=== PATIENT | male | born 1950 | race African-American/Black ===

== ENCOUNTER 2017-07-16 21:12 | Emergency (ER) | payer MEDICAID ==
[~2017-07-16] VITALS: Ht 188 cm; Wt 66.7 kg
[~2017-07-16 21:12] MED LIST: ALBUTEROL SULF8.5 GM INH; BACTRIM DOUBLE S1 E1 ORAL; DOXYCYCLINE MO100 MG ORAL; NORCO1 EA ORAL; UNOBMED; VIBRAMYCIN100 MG ORAL; unknown bp med
[2017-07-16 21:29] VITALS: BP 180/98
[2017-07-16] MEDS ORDERED: methylPREDNISolone Sod Succ 500 MG in NS 110 ML IVPB ONE (21:30)
[2017-07-16] MEDS ORDERED: Albuterol ud Inhalation HHN ONE (21:30)
[2017-07-16] MEDS ORDERED: Ipratropium 0.02% Inh Soln 2.5ml UD HHN ONE (21:30)
[2017-07-16] MEDS ORDERED: CATAPRES-TTS 21 EACH TDERMAL (21:34)
[2017-07-16] MEDS ORDERED: LEVOFLOXACIN750 MG ORAL (21:34)
--- NOTE | 2017-07-16 21:49 | Emergency Room Report ---
History of Present Illness General Chief Complaint: Dyspnea/Respdistress Source: Patient, Friend Present Illness HPI This is a 66-year-old male with a history of hypertension and HIV. According to friend, he smokes a lot and cannot take his blood pressure medication. Patient claimed that he takes his HIV medication. He presents with chief complaint of cough and congestion for over a week. No fever or chills. Getting worse. Worse with exertion. Cough is productive of whitish to yellow sputum. No nausea no vomiting. Similar symptom in the past. Denies any chest pain. Allergies: Coded Allergies: No Known Allergies (Verified Allergy, Unknown, 04/12/08) Patient History Past Medical History: see triage record, old chart reviewed, HTN, HIV Past Surgical History: other Pertinent Family History: none Social History: Reports: smoking, drug use Immunizations: other Reviewed Nursing Documentation: PMH: Agreed, PSxH: Agreed Nursing Documentation-PMH Hx Hypertension: Yes Hx COPD: Yes Review of Systems Eye: Denies: eye pain, blurred vision ENT: Denies: ear pain, nose congestion, throat swelling Respiratory: Reports: cough, shortness of breath Cardiovascular: Denies: chest pain, palpitations Gastrointestinal: Denies: abdominal pain, diarrhea, nausea, vomiting Musculoskeletal: Denies: back pain, joint pain Skin: Denies: rash Neurological: Denies: headache, numbness Endocrine: Denies: increased thirst, increased urine Hematologic/Lymphatic: Denies: easy bruising All Other Systems: negative except mentioned in HPI Physical Exam Vital Signs Date Time Temp Pulse Resp B/P (MAP) Pulse Ox O2 Delivery O2 Flow Rate FiO2 07/16/17 21:24 98.8 92 18 197/118 85 Room Air 07/16/17 21:29 2.0 vitals with high blood pressure and hypoxia Sp02 EP Interpretation: reviewed, normal General Appearance: well appearing, alert, mild distress, Chronically Ill Head: normocephalic, atraumatic Eyes: bilateral eye PERRL, bilateral eye EOMI ENT: hearing grossly normal, normal pharynx Neck: full range of motion, supple, no meningismus Respiratory: chest non-tender, crackles, rhonchi Cardiovascular #1: regular rate, rhythm, no murmur Gastrointestinal: normal bowel sounds, non tender, no mass, no organomegaly, no bruit, non-distended Musculoskeletal: back normal, gait/station normal, normal range of motion, other - Multiple track webster on both arms from skin popping. Neurologic: alert, oriented x3 Psychiatric: mood/affect normal Skin: warm/dry Medical Decision Making Diagnostic Impression: Primary Impression: COPD with exacerbation Additional Impressions: Pneumonia Qualified Codes: J18.1 - Lobar pneumonia, unspecified organism Hypertension Qualified Codes: I10 - Essential (primary) hypertension Drug abuse ER Course Patient presents with coughing, rhonchi wheezing. He does have a history of COPD based on previous x-ray. Questionable [facility] pneumonia. Because of his risk factor undergoing cover him with antibiotics. He felt much better after breathing treatment. Does not want to stay in the hospital. I suspect his hypoxia is chronic in nature, smoking. No evidence of ACS, PE, dissection to name a few. Lab Results Impression labs unremarkable EKG Diagnostic Results Rate: normal Rhythm: NSR ST Segments: no acute changes Rhythm Strip Diag. Results Rhythm Strip Time: 21:49 EP Interpretation: yes Rate: 82 Rhythm: NSR, no PVC's, no ectopy Chest X-Ray Diagnostic Results Chest X-Ray Diagnostic Results : Chest X-Ray Ordered: Yes # of Views/Limited/Complete: 1 View Indication: Shortness of Breath EP Interpretation: Yes Interpretation: no effusion, no pneumothorax, other - Right lower lobe interstitial infiltrates Last Vital Signs Date Time Temp Pulse Resp B/P (MAP) Pulse Ox O2 Delivery O2 Flow Rate FiO2 07/16/17 21:29 98.7 87 16 180/98 100 Nasal Cannula 2.0 Status: improved Disposition: HOME, SELF-CARE Condition: Improved Scripts Amlodipine Besylate (Norvasc) 10 Mg Tablet 10 MG ORAL DAILY, #30 TAB Prov: KISHORE RAM M.D. 07/16/17 Azithromycin* (ZITHROMAX*) 250 Mg Tablet 250 MG ORAL DAILY, #6 TAB 0 Refills Take two tablets by mouth today, then take one tablet by mouth daily for four days Prov: KISHORE RAM M.D. 07/16/17 Prednisone* (PREDNISONE*) 20 Mg Tablet 60 MG ORAL DAILY, #15 TAB Prov: KISHORE RAM M.D. 07/16/17 Albuterol Sulfate* (ALBUTEROL SULFATE MDI*) 8.5 Gm Hfa.aer.ad 2 PUFF INH Q4H Y for cough/wheezing, #1 EA 0 Refills Prov: KISHORE RAM M.D. 07/16/17 Patient Instructions: Chronic Obstructive Pulmonary Disease Exacerbation Additional Instructions: Stop smoking. Stop using drugs. Followup with your Dr. in 2-3 days. Return if worse. KISHORE RAM M.D. Jul 16, 2017 21:49
[2017-07-16 22:31] LABS: BASOPHILS % (AUTO) 3.1 % (0.0-2.0); EOSINOPHILS % (AUTO) 4.6 % (0.0-3.0); LYMPHOCYTES % (AUTO) 25.5 % (20.0-45.0); MEAN CORPUSCULAR HEMOGLOBIN 31.5 PG (27.0-31.0); MEAN CORPUSCULAR HGB CONC 33.3 G/DL (32.0-36.0); MEAN CORPUSCULAR VOLUME 95 FL (80-99); MEAN PLATELET VOLUME 8.4 FL (6.5-10.1); MONOCYTES % (AUTO) 9.4 % (1.0-10.0); NEUTROPHILS % (AUTO) 57.4 % (45.0-75.0); PLATELET COUNT 145 K/UL (150-450); RED BLOOD COUNT 4.43 M/UL (4.70-6.10); RED CELL DISTRIBUTION WIDTH 12.3 % (11.6-14.8); WHITE BLOOD COUNT 4.1 K/UL (4.8-10.8)
[2017-07-16 22:33] VITALS: BP 178/95
[2017-07-16 22:45] LABS: TROPONIN I < 0.30 ng/mL (<=0.30)
[2017-07-16 22:48] LABS: ALANINE AMINOTRANSFERASE 17 U/L (3-41); ALBUMIN/GLOBULIN RATIO 0.8 (1.0-2.7); ANION GAP 10 (5-15); ASPARTATE AMINO TRANSFERASE 50 U/L (5-40); CALCIUM 8.8 mg/dL (8.6-10.2); CARBON DIOXIDE 27 mEQ/L (20-30); CHLORIDE 100 mEQ/L (98-107); CREATININE 0.9 mg/dL (0.7-1.2); GLOMERULAR FILTRATION RATE > 60 mL/min (>60); HEMOLYSIS 37; POTASSIUM 4.4 mEQ/L (3.4-4.9); SODIUM 137 mEQ/L (135-145); TOTAL PROTEIN 8.1 g/dL (6.6-8.7)
[2017-07-16 22:57] LABS: CKMB 15.5 ng/mL (< 6.7)
[2017-07-16] MEDS ORDERED: cefTRIAXone 1 GM in NS 55 ML IVPB ONE (23:00)
[2017-07-16 23:36] VITALS: BP 165/88
[2017-07-16] MEDS ORDERED: ALBUTEROL SULF8.5 GM INH (23:39)
[2017-07-16] MEDS ORDERED: AZITHROMYCIN250 MG ORAL (23:39)
[2017-07-16] MEDS ORDERED: NORVASC10 MG ORAL (23:39)
[2017-07-16] MEDS ORDERED: PREDNISONE20 MG ORAL (23:39)
[2017-07-16 23:50] VITALS: BP 168/88
[2017-07-16 23:56] VITALS: BP 166/88
[2017-07-16 23:56] LABS: APPEARANCE,URINE CLEAR; KETONES,URINE NEGATIVE (NEGATIVE); LEUKOCYTE ESTERASE ,URINE 2+ (NEGATIVE); NITRITE,URINE NEGATIVE (NEGATIVE); PH,URINE 5 (4.5-8.0); PROTEIN,URINE NEGATIVE (NEGATIVE); UROBILINOGEN,URINE NORMAL MG/DL (0.0-1.0)
[2017-07-17 00:12] LABS: BACTERIA,URINE FEW /HPF; RBC,URINE 0-2 /HPF (0 - 0); SQUAMOUS EPITHELIAL CELL,UR FEW /LPF (NONE/OCC)
--- NOTE | 2017-07-17 09:08 | Diagnostic Imaging Report ---
Indication: Shortness of breath Technique: XRAY CHEST 1 V Comparison: 07/23/14 Findings: Cardiomediastinal silhouette is stable. The lungs are hyperinflated. Mild perihilar and basilar interstitial prominence is noted. Degenerative changes of the spine are seen. Impression: Mild perihilar and basilar interstitial edema versus infiltrates. Pulmonary hyperinflation. Clinical correlation/followup recommended.
--- NOTE | 2017-07-22 15:49 | Cardiology Report ---
APPROVED REPORT EKG Measurement Heart [id number] Normal sinus rhythm Possible Left atrial enlargement Borderline ECG
== END 2017-07-16 23:50 | disposition home or self-care (01) ==
LOC: EMR 21:58
DX: J44.1 Chronic obstructive pulmonary disease with (acute) exacerbation (principal); J18.9 Pneumonia, unspecified organism; I10 Essential (primary) hypertension; F19.10 Other psychoactive substance abuse, uncomplicated
CPT/HCPCS: 36415; 71010; 80053; 81003; 82550; 82553; 83605; 83615; 84484; 85025; 87040; 87086; 93005; 94664; 96361; 96365; 96366; 99284; J0696

== ENCOUNTER 2018-02-18 18:32 | Inpatient (IN) | payer MEDICARE, OTHER ==
[~2018-02-18] VITALS: Ht 182.9 cm; Wt 72.6 kg
[~2018-02-18 18:32] MED LIST changes: +AZITHROMYCIN250 MG ORAL; +CATAPRES-TTS 21 EACH TDERMAL; +LEVOFLOXACIN750 MG ORAL; +NORVASC10 MG ORAL; +PREDNISONE20 MG ORAL
[2018-02-18 18:39] VITALS: BP 137/75
[2018-02-18] MEDS: Ipratropium 0.02% Inh Soln 2.5ml UD HHN SCH ×3 (19:10→19:20)
[2018-02-18] MEDS: Albuterol ud Inhalation HHN SCH ×3 (19:10→19:20)
[2018-02-18 19:25] LABS: BASOPHILS % (AUTO) 6.4 % (0.0-2.0); HEMATOCRIT 43.8 % (42.0-52.0); HEMOGLOBIN 14.4 G/DL (14.2-18.0); LYMPHOCYTES % (AUTO) 21.6 % (20.0-45.0); MEAN CORPUSCULAR VOLUME 96 FL (80-99); MONOCYTES % (AUTO) 8.3 % (1.0-10.0); NEUTROPHILS % (AUTO) 60.7 % (45.0-75.0); PLATELET COUNT 182 K/UL (150-450); RED BLOOD COUNT 4.56 M/UL (4.70-6.10); RED CELL DISTRIBUTION WIDTH 13.8 % (11.6-14.8); WHITE BLOOD COUNT 6.2 K/UL (4.8-10.8)
[2018-02-18 19:38] LABS: ANION GAP 7 mmol/L (5-15); BLOOD UREA NITROGEN 13 mg/dL (7-18); CALCIUM 8.7 MG/DL (8.5-10.1); CARBON DIOXIDE 28 MMOL/L (21-32); CHLORIDE 102 MMOL/L (98-107); CREATININE 1.3 MG/DL (0.55-1.30); POTASSIUM 4.6 MMOL/L (3.5-5.1); SODIUM 137 MMOL/L (136-145)
[2018-02-18 19:53] LABS: ALANINE AMINOTRANSFERASE 98 U/L (12-78); ALBUMIN 2.9 G/DL (3.4-5.0); ALBUMIN/GLOBULIN RATIO 0.6 (1.0-2.7); ALKALINE PHOSPHATASE 125 U/L (46-116); ASPARTATE AMINO TRANSFERASE 175 U/L (15-37); BILIRUBIN,TOTAL 1.5 MG/DL (0.2-1.0)
[2018-02-18 19:56] LABS: BILIRUBIN,DIRECT 1.1 MG/DL (0.0-0.3)
[2018-02-18 20:06] LABS: APPEARANCE,URINE SLIGHTLY CLOUDY; BILIRUBIN, URINE 1+ (NEGATIVE); GLUCOSE, URINE (UA) NEGATIVE (NEGATIVE); KETONES,URINE 1+ (NEGATIVE); LEUKOCYTE ESTERASE ,URINE 2+ (NEGATIVE); NITRITE,URINE NEGATIVE (NEGATIVE); PH,URINE 5 (4.5-8.0); PROTEIN,URINE 2+ (NEGATIVE); UROBILINOGEN,URINE 4 MG/DL (0.0-1.0)
[2018-02-18 20:13] LABS: COLOR,URINE AMBER
--- NOTE | 2018-02-18 20:15 | Emergency Room Report ---
History of Present Illness General Chief Complaint: Dyspnea/Respdistress Source: EMS Present Illness HPI 67-year-old male presents ED for evaluation. Patient complaining of shortness of breath. Brought in by EMS from street. History of COPD. States he's had the symptoms on and off for the last 2 months but worse today. Denies chest pain. Denies fevers or chills. Per EMS patient was wheezing and given breathing treatment. History of HIV. No other aggravating relieving factors. Denies any other associated symptoms Allergies: Coded Allergies: No Known Allergies (Verified , 04/12/08) Patient History Past Medical History: HTN, asthma, COPD Past Surgical History: none Pertinent Family History: none Social History: Denies: smoking, alcohol use, drug use Immunizations: UTD Reviewed Nursing Documentation: PMH: Agreed; PSxH: Agreed Nursing Documentation-PMH Hx Hypertension: Yes Hx Asthma: Yes Hx COPD: Yes Review of Systems All Other Systems: negative except mentioned in HPI Physical Exam Vital Signs Date Time Temp Pulse Resp B/P (MAP) Pulse Ox O2 Delivery O2 Flow Rate FiO2 02/18/18 18:28 98.0 125 22 137/75 85 Room Air 98.1 02/18/18 18:39 2.0 100 Sp02 EP Interpretation: reviewed, normal General Appearance: no apparent distress, alert, GCS 15, non-toxic Head: normocephalic, atraumatic Eyes: bilateral eye normal inspection, bilateral eye PERRL ENT: hearing grossly normal, normal pharynx, no angioedema, normal voice Neck: full range of motion, supple/symm/no masses Respiratory: chest non-tender, decreased breath sounds, speaking full sentences , wheezing Cardiovascular #1: regular rate, rhythm, no edema Cardiovascular #2: 2+ carotid (R), 2+ carotid (L), 2+ radial (R), 2+ radial (L) , 2+ dorsalis pedis (R), 2+ dorsalis pedis (L) Gastrointestinal: normal bowel sounds, non tender, soft, non-distended, no guarding, no rebound Rectal: deferred Genitourinary: normal inspection, no CVA tenderness Musculoskeletal: back normal, gait/station normal, normal range of motion, non- tender Neurologic: alert, oriented x3, responsive, motor strength/tone normal, sensory intact, speech normal Psychiatric: judgement/insight normal, memory normal, mood/affect normal, no suicidal/homicidal ideation Reflexes: 3+ bicep (R), 3+ bicep (L), 3+ tricep (R), 3+ tricep (L), 3+ knee (R) , 3+ knee (L) Skin: normal color, no rash, warm/dry, well hydrated Lymphatic: no adenopathy Medical Decision Making Diagnostic Impression: Primary Impression: COPD exacerbation ER Course Hospital Course 67 yo M presents to ED c/o SOB. h/o COPD Differential diagnoses include: Pneumonia, CHF exacerbation, pneumothorax, fluid overload Clinical course Patient placed on stretcher. 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 After initial history and physical, I ordered nebulizer treatments. I ordered labs, IV fluids, EKG, chest x-ray, blood cultures, UA. Labs - no leukocytosis noted, hemoglobin/hematocrit stable, electrolytes okay, lactate 3.2 troponins negative CXR - hyperinflated lungs. no infiltrates EKG - sinus tachycardia, no acute ischemic changes interpreted by me On reassessment patient states he still feels short of breath. Abx given. Magnesium ordered Case discussed with Dr. Crabtree and he agreed to the patient to his service for further care and support I feel this is a highly complex case requiring extensive working including EKG/ Rhythm strip, Xray/CT/US, Blood/urine lab work, repeat exams while in ED, and administration of strong opiates/narcotics for pain control, admission to hospital or close patient follow up. Diagnosis - COPD exacerbation Patient admitted to telemetry in serious condition Labs Test 02/18/18 18:45 02/18/18 19:27 White Blood Count 6.2 K/UL (4.8-10.8) Red Blood Count 4.56 M/UL (4.70-6.10) Hemoglobin 14.4 G/DL (14.2-18.0) Hematocrit 43.8 % (42.0-52.0) Mean Corpuscular Volume 96 FL (80-99) Mean Corpuscular Hemoglobin 31.6 PG (27.0-31.0) Mean Corpuscular Hemoglobin Concent 32.9 G/DL (32.0-36.0) Red Cell Distribution Width 13.8 % (11.6-14.8) Platelet Count 182 K/UL (150-450) Mean Platelet Volume 7.9 FL (6.5-10.1) Neutrophils (%) (Auto) 60.7 % (45.0-75.0) Lymphocytes (%) (Auto) 21.6 % (20.0-45.0) Monocytes (%) (Auto) 8.3 % (1.0-10.0) Eosinophils (%) (Auto) 3.0 % (0.0-3.0) Basophils (%) (Auto) 6.4 % (0.0-2.0) Sodium Level 137 MMOL/L (136-145) Potassium Level 4.6 MMOL/L (3.5-5.1) Chloride Level 102 MMOL/L (98-107) Carbon Dioxide Level 28 MMOL/L (21-32) Anion Gap 7 mmol/L (5-15) Blood Urea Nitrogen 13 mg/dL (7-18) Creatinine 1.3 MG/DL (0.55-1.30) Estimat Glomerular Filtration Rate > 60 mL/min (>60) Glucose Level 82 MG/DL (74-106) Lactic Acid Level 3.20 mmol/L (0.66-2.22) Calcium Level 8.7 MG/DL (8.5-10.1) Total Bilirubin 1.5 MG/DL (0.2-1.0) Direct Bilirubin 1.1 MG/DL (0.0-0.3) Aspartate Amino Transf (AST/SGOT) 175 U/L (15-37) Alanine Aminotransferase (ALT/SGPT) 98 U/L (12-78) Alkaline Phosphatase 125 U/L (46-116) Pro-B-Type Natriuretic Peptide 467 pg/mL (0-125) Total Protein 7.8 G/DL (6.4-8.2) Albumin 2.9 G/DL (3.4-5.0) Globulin 4.9 g/dL Albumin/Globulin Ratio 0.6 (1.0-2.7) Urine Color Charity Urine Appearance Slightly cloudy Urine pH 5 (4.5-8.0) Urine Specific [place] 1.020 (1.005-1.035) Urine Protein 2+ (NEGATIVE) Urine Glucose (UA) Negative (NEGATIVE) Urine Ketones 1+ (NEGATIVE) Urine Occult Blood 2+ (NEGATIVE) Urine Nitrite Negative (NEGATIVE) Urine Bilirubin 1+ (NEGATIVE) Urine Urobilinogen 4 MG/DL (0.0-1.0) Urine Leukocyte Esterase 2+ (NEGATIVE) EKG Diagnostic Results Rate: tachycardiac Rhythm: NSR ST Segments: no acute changes ASA given to the pt in ED: No Rhythm Strip Diag. Results EP Interpretation: yes Rhythm: NSR, no PVC's, no ectopy Chest X-Ray Diagnostic Results Chest X-Ray Diagnostic Results : Chest X-Ray Ordered: Yes # of Views/Limited/Complete: 1 View Indication: Shortness of Breath Interpretation: no consolidation, no effusion, no pneumothorax, no acute cardiopulmonary disease, other - perihilar interstitial changes, hyperinflated lungs Impression: Other - copd Electronically Signed by: Electronically signed by Anderson Alvarez MD Last Vital Signs Date Time Temp Pulse Resp B/P (MAP) Pulse Ox O2 Delivery O2 Flow Rate FiO2 02/18/18 19:21 106 14 99 Nasal Cannula 2.0 28 02/18/18 18:39 98.1 137/75 98.1 Status: improved Disposition: ADMITTED INPATIENT Condition: Serious Referrals: OTHER,REFERRING (PCP) Anderson Alvarez MD Feb 18, 2018 20:15
[2018-02-18 20:39] VITALS: BP 144/99
[2018-02-18] MEDS ORDERED: Morphine Sulfate 4mg/ml Inj IVP PRN ×2 (22:30→22:45)
[2018-02-18 22:39] VITALS: BP 150/81
[2018-02-18 23:35] VITALS: BP 155/87
[2018-02-19] MEDS: Docusate 100mg cap ORAL SCH ×3 (00:10→22:23)
[2018-02-19] MEDS: Solu-MEDROL 125mg Inj IVP SCH ×3 (00:11→22:23)
[2018-02-19] MEDS: Albuterol/Ipratropium 3ml neb HHN SCH ×4 (01:00→19:57)
[2018-02-19 04:00] VITALS: BP 139/84
[2018-02-19 08:00] VITALS: BP 140/80
[2018-02-19] MEDS: Azithromycin 250mg tab ORAL SCH (08:06)
--- NOTE | 2018-02-19 10:58 | Diagnostic Imaging Report ---
Indication: Dyspnea Comparison: 07/16/2017 A single view chest radiograph was obtained. Findings: Upper lobe hyperlucency demonstrated within the lungs bilaterally. No obvious infiltrate identified and no significant change seen. Cardiac mediastinal silhouette and bones are unremarkable. IMPRESSION: Emphysema/COPD
--- NOTE | 2018-02-19 11:44 | History & Physical ---
History and Physical History & Physicial Hp dictated # [id number] RU VALERO Feb 19, 2018 11:44
[2018-02-19] MEDS ORDERED: Bactrim-DS 1 tab ORAL SCH ×2 (11:45→13:00)
[2018-02-19 12:00] VITALS: BP 139/92
--- NOTE | 2018-02-19 14:16 | Consultation ---
Consult Note Assessment/Plan [facility] DICT # [id number] SAYRA BAILEY M.D. Feb 19, 2018 14:16
[2018-02-19 16:00] VITALS: BP 134/87
--- NOTE | 2018-02-19 17:05 | Cardiology Report ---
APPROVED REPORT EKG Measurement Heart [id number] ID [id number] Sinus tachycardia Nonspecific T wave abnormality Abnormal ECG
[2018-02-19] MEDS: Bactrim-DS 1 tab ORAL SCH (17:16)
--- NOTE | 2018-02-19 19:15 | History and Physical Report ---
DATE OF ADMISSION: 02/18/2018 CHIEF COMPLAINT: Shortness of breath. HISTORY OF PRESENT ILLNESS: This is a 67-year-old male with history of chronic obstructive pulmonary disease. He said that he was just last month at [facility] for shortness of breath and chronic obstructive pulmonary disease exacerbation. He got short of breath again last night and called paramedics. He said that he used his inhalers 4 or 5 times without any effect. The patient was seen in the emergency room and was found to have chronic obstructive pulmonary disease exacerbation and was admitted. PAST MEDICAL HISTORY: Includes also history of human immunodeficiency virus. 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 He has history of hypertension. MEDICATIONS: Reviewed in the EMR. ALLERGIES: No known drug allergies. SOCIAL HISTORY: The patient used to smoke until last month, he stopped. He said that he used to smoke 2 packs a day for about 5 years. He drinks socially. Lives with girlfriend. REVIEW OF SYSTEMS: Noncontributory except above. PHYSICAL EXAMINATION: GENERAL: The patient is a 67-year-old male, in no acute distress. VITAL SIGNS: Blood pressure 140/80, pulse 91, temperature 97.1, and respiratory rate 20. HEENT: [place] conjunctivae. Anicteric sclerae. NECK: Supple. LUNGS: Bilateral expiratory wheezing. HEART: S1 and S2 without murmurs or rubs. ABDOMEN: Soft and nontender. EXTREMITIES: No cyanosis or edema. LABORATORY FINDINGS: The chemistry panel shows serum sodium of 137, potassium 4.6, chloride 103, CO2 28, BUN is 13, and creatinine 1.3. Calcium is 8.7. CBC shows a WBC of 6.2, hematocrit 43.8, hemoglobin is 14.4, and platelets 182,000. UA shows 10 to 15 wbc's per high-power field. ASSESSMENT: This is a 67-year-old male, who is admitted with chronic obstructive pulmonary disease exacerbation. He has significant wheezing on his physical exam. He has also urinary tract infection. He could also have some acute bronchitis, history of human immunodeficiency virus, and hypertension. PLAN: The patient will be on handheld nebulizer DuoNeb. Intravenous steroids were started. The patient will be on antibiotics both for possible acute bronchitis as well as his urinary tract infection. Pulmonary consultation will be obtained and further adjustment will be made in the patient's regimen. Solitario Crabtree M.D. DR: MIK JOB#: [id number] CC:
[2018-02-19 20:00] VITALS: BP 172/110
--- NOTE | 2018-02-19 21:00 | Consultation ---
DATE OF CONSULTATION: 02/19/2018 PULMONARY CONSULTATION CONSULTING PHYSICIAN: Agusto Hamilton M.D. REFERRING PHYSICIAN: Solitario Crabtree M.D. REASON FOR CONSULTATION: COPD exacerbation. HISTORY OF PRESENT ILLNESS: The patient is a 67-year-old male, former smoker with a history of COPD, hypertension, HIV and possible AIDS, recently discharged from [facility] 1 month ago with a COPD exacerbation who presented late last night early this morning to the emergency department with several days of cough, congestion and shortness of breath. He has been having some wheezing and breathing treatments on the field did not help. He only uses p.r.n. albuterol at home. He does not follow up with the manager dish. The patient receiving nebulized treatments and steroids in the emergency room. Feels better currently. Since arriving at the hospital, he has been afebrile with stable vital signs except for some mild sinus tachycardia. He has been saturating well on room air. His white count was 6.2. His ABG was 7.37/48/124/27/98. His chemistry was remarkable for elevated lactic acid and abnormal LFTs. The patient is unsure of his CD4 count or viral load. He states that he was previously on therapy for his HIV. It is unclear why he is not right now. PAST MEDICAL HISTORY: 1. COPD. 2. HIV. 3. Hypertension. PAST SURGICAL HISTORY: None. MEDICATIONS: Prior to admission medications reviewed. Current medications reviewed. ALLERGIES: No known drug allergies. SOCIAL HISTORY: No current tobacco, but extensive former tobacco. No drug or alcohol use. FAMILY HISTORY: Noncontributory. REVIEW OF SYSTEMS: Negative other than history of present illness. PHYSICAL EXAMINATION: GENERAL: Well-developed and well-nourished male in no acute distress. Awake, alert, and oriented. VITAL SIGNS: Temperature 97.7 degrees, pulse 78, blood pressure 139/92, respiratory rate 20 and saturating 99% on room air. HEENT: Normocephalic and atraumatic. Oropharynx is moist mucous membranes. NECK: Supple without lymphadenopathy or JVD. CHEST: Clear to auscultation bilaterally, but distant. HEART: Regular rate and rhythm. ABDOMEN: Soft, nontender, and nondistended. EXTREMITIES: No cyanosis, clubbing, or edema. LABORATORY AND DIAGNOSTIC DATA: Ancillary data, sodium 137, potassium 4.2, chloride 102, bicarbonate 28, BUN 13, and creatinine 1.3. Lactic acid 3.2. Calcium 8.7. Total bilirubin 1.5. Direct bilirubin 1.1. AST 175, ALT 98, and alkaline phosphatase 125. Troponin 0.026. ProBNP 467. Total protein 7.8. Albumin 2.9. Urinalysis, 2+ protein. 1+ ketones, 2+ blood, 1+ bilirubin, 2+ urobilinogen, and moderate bacteria. Urine culture is preliminarily no growth. Chest x-ray shows hyperinflation consistent with COPD with likely upper lobe predominant bullous disease. ASSESSMENT: The patient is a 67-year-old male former smoker with history of COPD, HIV, possible AIDS, hypertension, multiple recent COPD exacerbations presenting with shortness of breath. Also noted to have abnormal LFTs and shortness of breath is likely secondary to an exacerbation of his chronic obstructive pulmonary disease. The patient also has urinary tract infection. PROBLEM LIST: 1. COPD with acute exacerbation. 2. History of multiple COPD exacerbations. 3. Former smoker. 4. HIV with possible AIDs, CD4 count and viral load unknown. 5. Abnormal LFTs. 6. UTI,. 7. Hypertension. TREATMENT PLAN: 1. Optimize pulmonary hygiene/mobilize as tolerated. 2. As needed O2 to keep saturations greater than 90%. 3. [id number] and p.r.n. DuoNebs. 4. Continues to Solu-Medrol 60 mg IV b.i.d., we will taper based on clinical response. 5. Continue p.o. azithromycin (today is day #1). 6. The patient is on Bactrim, presumptively for PCP prophylaxis and on Levaquin for UTI. 7. Continue to encourage abstinence from tobacco use. 8. Follow up abdominal ultrasound. 9. Monitor LFTs. 10. Aspiration precautions. 11. DVT prophylaxis. 12. Heparin subcutaneous. Dr. Crabtree, thank you for allowing me to assist in the care of your patient. If I may be of any assistance in the future, please do not hesitate to ask. Agusto Hamilton M.D. DR: LILA JOB#: [id number] CC:
[2018-02-19] MEDS: Ciprofloxacin 500mg tab ORAL SCH (22:23)
[2018-02-20] VITALS (7 sets, daily range): BP systolic 130–161; BP diastolic 75–102
[2018-02-20] MEDS: Albuterol/Ipratropium 3ml neb HHN SCH ×5 (01:27→19:35)
--- NOTE | 2018-02-20 08:38 | Pulmonology Progress Note ---
Assessment/Plan Problems: (1) HIV (human immunodeficiency virus infection) (2) Abnormal LFTs (3) COPD exacerbation (4) UTI (urinary tract infection) Assessment/Plan ASSESSMENT: The patient is a 67-year-old male former smoker with history of COPD, HIV, possible AIDS, hypertension, multiple recent COPD exacerbations presenting with shortness of breath. Also noted to have abnormal LFTs and shortness of breath is likely secondary to an exacerbation of his chronic obstructive pulmonary disease. The patient also has urinary tract infection. PROBLEM LIST: 1. COPD with acute exacerbation. 2. History of multiple COPD exacerbations. 3. Former smoker. 4. HIV with possible AIDs, CD4 count and viral load unknown. 5. Abnormal LFTs. 6. UTI,. 7. Hypertension. TREATMENT PLAN: 1. Optimize pulmonary hygiene/mobilize as tolerated. 2. As needed O2 to keep saturations greater than 90%. 3. Etoir-tfn-oqljo and p.r.n. DuoNebs. 4. Decrease Solu-Medrol to 40 mg IV b.i.d., we will taper based on clinical response. 5. Continue p.o. azithromycin (today is day #2 ). 6. The patient is on Bactrim, presumptively for PCP prophylaxis and on Cipro (D2) for UTI. 7. Continue to encourage abstinence from tobacco use. 8. Follow up abdominal ultrasound. 9. F/U todays labs, including CBC, CMP and lactic acid 10. Aspiration precautions. 11. DVT prophylaxis: Heparin subcutaneous. Subjective Allergies: Coded Allergies: No Known Allergies (Verified , 04/12/08) Subjective AFVSS, stable O2 needs Less SOB, less cough, no wheezing, no CP, no F/C No abd pain, awaiting abdominal US Objective Last 24 Hour Vital Signs Date Time Temp Pulse Resp B/P (MAP) Pulse Ox O2 Delivery O2 Flow Rate FiO2 02/20/18 07:25 95 Nasal Cannula 2.0 28 02/20/18 07:25 86 16 95 Nasal Cannula 2.0 28 02/20/18 07:25 Nasal Cannula 2.0 28 02/20/18 04:00 97.0 98 20 149/82 96 Room Air 97.0 02/20/18 04:00 91 02/20/18 01:35 95 18 98 Nasal Cannula 2.0 28 02/20/18 01:27 94 18 96 Nasal Cannula 2.0 28 02/20/18 00:00 98.0 97 20 153/90 96 Room Air 98.0 02/20/18 00:00 97 02/19/18 20:06 89 18 97 Nasal Cannula 2.0 28 02/19/18 20:00 89 02/19/18 20:00 97.5 103 20 172/110 95 Room Air 97.5 02/19/18 19:56 94 Nasal Cannula 2.0 28 02/19/18 19:56 92 18 94 Nasal Cannula 2.0 28 02/19/18 19:56 Nasal Cannula 2.0 28 02/19/18 16:00 97.5 88 20 134/87 100 Room Air 97.5 02/19/18 16:00 87 02/19/18 13:46 92 18 97 Nasal Cannula 2.0 02/19/18 13:31 87 22 94 Nasal Cannula 2.0 28 02/19/18 13:08 139/92 02/19/18 12:00 85 02/19/18 12:00 97.7 78 20 139/92 99 Room Air 97.7 Intake and Output 02/19/18 02/20/18 19:00 07:00 Intake Total 3960 ml Output Total 400 ml Balance 3560 ml Intake Oral 3960 ml Output Urine Total 400 ml # Voids 1 2 # Bowel Movements 1 General Appearance: WD/WN, no acute distress HEENT: normocephalic, atraumatic, anicteric, mucous membranes moist Respiratory/Chest: chest wall non-tender, lungs clear - but distant, normal breath sounds, no respiratory distress Cardiovascular: normal peripheral pulses, normal rate, regular rhythm Abdomen: normal bowel sounds, soft, non tender, no organomegaly, non distended Extremities: no cyanosis, no clubbing, no edema Microbiology Date/Time Source Procedure Growth Status 02/18/18 18:55 Blood Blood Culture - Preliminary NO GROWTH AFTER 24 HOURS Resulted 02/18/18 18:45 Blood Blood Culture - Preliminary NO GROWTH AFTER 24 HOURS Resulted 02/18/18 19:27 Urine,Clean Catch Urine Culture - Preliminary Mixed Gram Positive Organism Resulted Laboratory Tests 02/19/18 14:55: White Blood Count [Pending], Lymphocytes [Pending], Lactic Acid Level 5.00H, Lipase 150, Percent CD3 Cells [Pending], Absolute CD3 Count [Pending], Percent CD4 Cells [Pending], Absolute CD4 Count [Pending], T-Lymphocyte CD4/CD8 Ratio [ Pending], Percent CD8 Cells [Pending], Absolute CD8 Count [Pending], HIV-1 RNA ( PCR) log10 Value [Pending], HIV-1 RNA Ultraquantitative (PCR) [Pending] Current Medications Medications (Trade) Dose Ordered Sig/Marie Route PRN Reason Start Time Stop Time Status Last Admin Dose Admin Acetaminophen (Tylenol) 650 mg Q4H PRN ORAL Mild Pain (Pain Scale 1-3) 02/18/18 22:30 03/20/18 22:29 Albuterol/ Ipratropium (Albuterol/ Ipratropium) 3 ml Q4H PRN N Shortness of Breath 02/19/18 14:00 02/24/18 13:59 Albuterol/ Ipratropium (Albuterol/ Ipratropium) 3 ml Q6HRT HHN 02/19/18 01:00 02/24/18 00:59 02/20/18 07:25 Amlodipine Besylate (Norvasc) 10 mg DAILY ORAL 02/19/18 09:00 03/21/18 08:59 02/19/18 08:08 Azithromycin (Zithromax) 250 mg DAILY ORAL 02/19/18 09:00 02/26/18 08:59 02/19/18 08:06 Ciprofloxacin (Cipro 500mg tab) 500 mg EVERY 12 HOURS ORAL 02/19/18 21:00 02/26/18 20:59 02/19/18 22:23 Clonidine HCl (Catapres TTS-2) 1 patch QWEEK TDERMAL 02/19/18 12:00 03/21/18 11:59 02/19/18 13:08 Dextrose (Dextrose 50%) 25 ml STAT PRN IV Hypoglycemia 02/18/18 22:30 03/20/18 22:29 Dextrose (Dextrose 50%) 50 ml STAT PRN IV Hypoglycemia 02/18/18 22:30 03/20/18 22:29 Docusate Sodium (Colace) 100 mg EVERY 12 HOURS ORAL 02/18/18 22:30 03/20/18 22:29 02/19/18 22:23 Famotidine (Pepcid) 40 mg DAILY ORAL 02/19/18 09:00 03/21/18 08:59 02/19/18 08:07 Methylprednisolone Sodium Succinate (Solu-MEDROL) 60 mg EVERY 12 HOURS IVP 02/18/18 22:30 03/20/18 22:29 02/19/18 22:23 Morphine Sulfate (Morphine Sulfate) 2 mg Q3H PRN IVP Moderate Pain (Pain Scale 4-6) 02/18/18 22:45 02/25/18 22:44 Morphine Sulfate (Morphine Sulfate) 4 mg EVERY 3 HOURS PRN IVP Severe Pain (Pain Scale 7-10) 02/18/18 22:30 02/25/18 22:29 Temazepam (Restoril) 15 mg BEDTIME PRN ORAL INSOMNIA 02/18/18 22:30 02/25/18 22:29 Trimethoprim/ Sulfamethoxazole (Bactrim-DS) 1 tab TWICE A DAY ORAL 02/19/18 18:00 02/26/18 17:59 02/19/18 17:16 SAYRA BAILEY M.D. Feb 20, 2018 08:38
[2018-02-20] MEDS: Docusate 100mg cap ORAL SCH ×2 (09:00→21:08)
[2018-02-20] MEDS: Ciprofloxacin 500mg tab ORAL SCH (09:00)
[2018-02-20] MEDS: Bactrim-DS 1 tab ORAL SCH ×2 (09:00→18:00)
[2018-02-20] MEDS: Azithromycin 250mg tab ORAL SCH (09:00)
[2018-02-20] MEDS: Solu-MEDROL 40mg Inj IVP SCH ×2 (09:29→21:09)
--- NOTE | 2018-02-20 09:33 | General Progress Note ---
Assessment/Plan Problem List: (1) HIV (human immunodeficiency virus infection) ICD Codes: B20 - Human immunodeficiency virus [HIV] disease SNOMED: 30916194 (2) COPD exacerbation ICD Codes: J44.1 - Chronic obstructive pulmonary disease with (acute) exacerbation SNOMED: 604606923 (3) Abnormal LFTs ICD Codes: R94.5 - Abnormal results of liver function studies SNOMED: 569089808 (4) UTI (urinary tract infection) ICD Codes: N39.0 - Urinary tract infection, site not specified SNOMED: 49211224 Assessment/Plan cont with bronchodilators IV steroids abxs ID consult Subjective Allergies: Coded Allergies: No Known Allergies (Verified , 04/12/08) Subjective feels better Objective Last 24 Hour Vital Signs Date Time Temp Pulse Resp B/P (MAP) Pulse Ox O2 Delivery O2 Flow Rate FiO2 02/20/18 07:35 89 18 97 Nasal Cannula 2.0 28 02/20/18 07:25 95 Nasal Cannula 2.0 28 02/20/18 07:25 86 16 95 Nasal Cannula 2.0 28 02/20/18 07:25 Nasal Cannula 2.0 28 02/20/18 04:00 97.0 98 20 149/82 96 Room Air 97.0 02/20/18 04:00 91 02/20/18 01:35 95 18 98 Nasal Cannula 2.0 28 02/20/18 01:27 94 18 96 Nasal Cannula 2.0 28 02/20/18 00:00 98.0 97 20 153/90 96 Room Air 98.0 02/20/18 00:00 97 02/19/18 20:06 89 18 97 Nasal Cannula 2.0 28 02/19/18 20:00 89 02/19/18 20:00 97.5 103 20 172/110 95 Room Air 97.5 02/19/18 19:56 94 Nasal Cannula 2.0 28 02/19/18 19:56 92 18 94 Nasal Cannula 2.0 28 02/19/18 19:56 Nasal Cannula 2.0 28 02/19/18 16:00 97.5 88 20 134/87 100 Room Air 97.5 02/19/18 16:00 87 02/19/18 13:46 92 18 97 Nasal Cannula 2.0 28 02/19/18 13:31 87 22 94 Nasal Cannula 2.0 28 02/19/18 13:08 139/92 02/19/18 12:00 85 02/19/18 12:00 97.7 78 20 139/92 99 Room Air 97.7 Intake and Output 02/19/18 02/20/18 19:00 07:00 Intake Total 3960 ml Output Total 400 ml Balance 3560 ml Intake Oral 3960 ml Output Urine Total 400 ml # Voids 1 2 # Bowel Movements 1 Laboratory Tests 02/19/18 14:55: White Blood Count [Pending], Lymphocytes [Pending], Lactic Acid Level 5.00H, Lipase 150, Percent CD3 Cells [Pending], Absolute CD3 Count [Pending], Percent CD4 Cells [Pending], Absolute CD4 Count [Pending], T-Lymphocyte CD4/CD8 Ratio [ Pending], Percent CD8 Cells [Pending], Absolute CD8 Count [Pending], HIV-1 RNA ( PCR) log10 Value [Pending], HIV-1 RNA Ultraquantitative (PCR) [Pending] Height (Feet): 6 Height (Inches): 0.00 Weight (Pounds): 160 Cardiovascular: normal rate Respiratory/Chest: expiratory wheezing - less Edema: no edema noted RU Pete Feb 20, 2018 09:33
[2018-02-20 10:03] LABS: ANION GAP 4 mmol/L (5-15); BLOOD UREA NITROGEN 25 mg/dL (7-18); CALCIUM 8.5 MG/DL (8.5-10.1); CARBON DIOXIDE 29 MMOL/L (21-32); CHLORIDE 103 MMOL/L (98-107); CREATININE 1.1 MG/DL (0.55-1.30); POTASSIUM 4.9 MMOL/L (3.5-5.1); SODIUM 135 MMOL/L (136-145)
[2018-02-20 10:07] LABS: ALANINE AMINOTRANSFERASE 82 U/L (12-78); ALBUMIN 2.2 G/DL (3.4-5.0); ALBUMIN/GLOBULIN RATIO 0.5 (1.0-2.7); ALKALINE PHOSPHATASE 100 U/L (46-116); ASPARTATE AMINO TRANSFERASE 127 U/L (15-37)
[2018-02-20] MEDS: Albuterol/Ipratropium 3ml neb HHN PRN ×2 (11:27→17:19)
[2018-02-20 11:37] LABS: BASOPHILS % (AUTO) 4.9 % (0.0-2.0); HEMATOCRIT 44.6 % (42.0-52.0); HEMOGLOBIN 14.8 G/DL (14.2-18.0); LYMPHOCYTES % (AUTO) 8.7 % (20.0-45.0); MEAN CORPUSCULAR VOLUME 98 FL (80-99); MONOCYTES % (AUTO) 3.2 % (1.0-10.0); NEUTROPHILS % (AUTO) 83.2 % (45.0-75.0); PLATELET COUNT 159 K/UL (150-450); RED BLOOD COUNT 4.57 M/UL (4.70-6.10); RED CELL DISTRIBUTION WIDTH 13.3 % (11.6-14.8); WHITE BLOOD COUNT 8.7 K/UL (4.8-10.8)
[2018-02-20] MEDS ORDERED: Azithromycin 600mg Tab ORAL SCH (15:00)
--- NOTE | 2018-02-20 18:30 | Consultation ---
DATE OF CONSULTATION: 02/20/2018 INFECTIOUS DISEASE CONSULTATION CONSULTING PHYSICIAN: Steven Crabtree M.D. PRIMARY ATTENDING PHYSICIAN: Solitario Crabtree M.D. REASON FOR CONSULT: HIV, AIDS, and COPD with exacerbation. HISTORY OF PRESENT ILLNESS: The patient is a 67-year-old male, admitted on 02/18/2018 from home complaining of shortness of breath on and off for two months and also weight loss and productive cough. No fever. He has history of HIV. PAST MEDICAL HISTORY: Significant for HIV since 23 years ago, he was diagnosed when he was incarcerated. States that he goes to [facility] and takes medication every day. He has hypertension, believes that he has some kind of hepatitis, likely hepatitis C. He was also injection drug user and smoker. ALLERGIES: No known drug allergies. MEDICATIONS: Getting methylprednisolone, Cipro, Bactrim, albuterol, ipratropium, clonidine, famotidine, amlodipine, Zithromax, morphine, Tylenol, Colace, and temazepam. SOCIAL HISTORY: Single, but lives with somebody. He was a heavy smoker until 1 month ago. He smoked 2 packs of cigarettes a day. He used heroin and had skin-popping. REVIEW OF SYSTEMS: Denies fever or chills. He has weight loss of unknown amount. No nausea. No vomiting. No diarrhea. No problem passing urine. Shortness of breath and coughing. PHYSICAL EXAMINATION: VITAL SIGNS: Temperature 97.8 degrees, pulse 103, and blood pressure 144/78. GENERAL APPEARANCE: No acute distress. HEAD AND NECK: No oral lesion. Getting oxygen by nasal cannula. HEART: Tachycardic. LUNGS: Decreased expansion and sounds. ABDOMEN: Soft. The patient has abdominal wall hernia in the midline. EXTREMITIES: He has no edema, but there is scar of previous skin-popping. LABORATORY AND DIAGNOSTIC DATA: Sodium 135, potassium 4.9, chloride 103, bicarbonate 29, BUN 25, creatinine 1.1, and glucose 128. Lactic acid 4.1. AST 127 and ALT 82. WBC 8.7, hemoglobin 14.8, hematocrit 44.6, and platelet is 159,000. HIV viral load is pending. Absolute CD4 count is 4. Chest x-ray showed emphysema and COPD. IMPRESSION: HIV, AIDS. Absolute CD4 count is 4. The patient is at risk for opportunistic infection. Before admission, he was on Bactrim prophylaxis. He has COPD and emphysema. He has lactic acidosis, history of hepatitis C, and has elevated transaminases of liver. He has history of hypertension and has history of smoking and drug abuse. RECOMMENDATION: We will change Cipro to Levaquin. We will continue Bactrim. We will send sputum for Pneumocystis test. We will change the dose of Zithromax from 250 mg daily to 1200 mg weekly. The patient is supposed to send somebody to bring the medication from home. We will start HIV medication as soon as possible. At the end of my exam, I thank Dr. Crabtree for involving me in the care of this patient. Steven Crabtree M.D. DR: TERRANCE JOB#: [id number] CC: JACOB
[2018-02-21] VITALS: BP 137/84
[2018-02-21] MEDS: Albuterol/Ipratropium 3ml neb HHN SCH ×3 (00:37→12:30)
[2018-02-21 04:00] VITALS: BP 129/79
[2018-02-21 08:00] VITALS: BP 156/99
--- NOTE | 2018-02-21 08:36 | Pulmonology Progress Note ---
Assessment/Plan Problems: (1) HIV (human immunodeficiency virus infection) (2) Abnormal LFTs (3) COPD exacerbation (4) UTI (urinary tract infection) Assessment/Plan ASSESSMENT: The patient is a 67-year-old male former smoker with history of COPD, HIV, possible AIDS, hypertension, multiple recent COPD exacerbations presenting with shortness of breath. Also noted to have abnormal LFTs and shortness of breath is likely secondary to an exacerbation of his chronic obstructive pulmonary disease. The patient also has urinary tract infection. PROBLEM LIST: 1. COPD with acute exacerbation. 2. History of multiple COPD exacerbations. 3. Former smoker. 4. AIDS with CD4 count 4 5. Abnormal LFTs - IMPROVED 6. UTI,. 7. Hypertension. 8. Protein calorie malnutrition TREATMENT PLAN: 1. Optimize pulmonary hygiene/mobilize as tolerated. 2. As needed O2 to keep saturations greater than 90%. 3. Xsugt-cva-zneys and p.r.n. DuoNebs. 4. D/C SM, start Pred 4 BID and taper 5. Abx and PPX per ID 6. ? resume cART 7. Continue to encourage abstinence from tobacco use. 8. Follow up abdominal ultrasound. 9. F/U todays labs, including CBC, CMP and lactic acid 10. Aspiration precautions. 11. DVT prophylaxis: Heparin subcutaneous. Subjective Allergies: Coded Allergies: No Known Allergies (Verified , 04/12/08) Subjective AFVSS, stable O2 needs Denies SOB or cough, no wheezing, no CP, no F/C No abd pain, awaiting abdominal US (not done yesterday) LA 4, CD4 count 4! Objective Last 24 Hour Vital Signs Date Time Temp Pulse Resp B/P (MAP) Pulse Ox O2 Delivery O2 Flow Rate FiO2 02/21/18 07:25 89 20 99 Nasal Cannula 2.0 28 02/21/18 07:13 96 Nasal Cannula 2.0 28 02/21/18 07:13 Nasal Cannula 2.0 28 02/21/18 07:13 92 21 95 Nasal Cannula 2.0 28 02/21/18 04:00 102 02/21/18 04:00 97.5 94 19 129/79 95 Nasal Cannula 2.0 97.5 02/21/18 00:45 105 18 99 Nasal Cannula 2.0 28 02/21/18 00:37 101 22 97 Nasal Cannula 2.0 28 02/21/18 00:00 104 5/1/18 00:00 96.9 100 19 137/84 94 Nasal Cannula 2.0 96.9 02/20/18 20:00 109 02/20/18 20:00 97.3 109 19 130/75 97 Nasal Cannula 2.0 97.3 02/20/18 19:58 102 18 98 Nasal Cannula 2.0 28 02/20/18 19:35 Nasal Cannula 2.0 28 02/20/18 19:35 97 22 95 Nasal Cannula 2.0 28 02/20/18 19:35 96 Nasal Cannula 2.0 28 02/20/18 17:29 105 18 95 Nasal Cannula 2.0 28 02/20/18 17:19 114 24 95 Nasal Cannula 2.0 02/20/18 16:02 101 02/20/18 16:00 97.7 94 20 150/87 94 Nasal Cannula 2.0 97.7 102 02/20/18 13:30 96.4 108 18 161/102 99 Room Air 96.4 02/20/18 13:22 103 22 96 Nasal Cannula 2.0 02/20/18 13:11 101 18 94 Nasal Cannula 2.0 02/20/18 12:00 97.8 99 20 144/78 100 Nasal Cannula 2.0 97.8 02/20/18 11:39 93 24 97 Nasal Cannula 2.0 02/20/18 11:28 91 20 94 Nasal Cannula 2.0 02/20/18 11:24 96 Intake and Output 02/20/18 02/21/18 19:00 07:00 Intake Total 160 ml 150 ml Balance 160 ml 150 ml Intake Oral 160 ml 150 ml # Voids 5 2 # Bowel Movements 1 General Appearance: WD/WN, no acute distress HEENT: normocephalic, atraumatic, anicteric, mucous membranes moist Respiratory/Chest: chest wall non-tender, lungs clear, normal breath sounds, no respiratory distress, no accessory muscle use Cardiovascular: normal peripheral pulses, normal rate, regular rhythm Abdomen: normal bowel sounds, soft, non tender, no organomegaly, non distended , no mass Extremities: no cyanosis, no clubbing, no edema Microbiology Date/Time Source Procedure Growth Status 02/18/18 18:55 Blood Blood Culture - Preliminary NO GROWTH AFTER 48 HOURS Resulted 02/18/18 18:45 Blood Blood Culture - Preliminary NO GROWTH AFTER 48 HOURS Resulted 02/18/18 19:27 Urine,Clean Catch Urine Culture - Final Mixed Gram Positive Organism Complete Laboratory Tests 02/20/18 08:36: Sodium Level 135L, Potassium Level 4.9, Chloride Level 103, Carbon Dioxide Level 29, Anion Gap 4L, Blood Urea Nitrogen 25H, Creatinine 1.1, Estimat Glomerular Filtration Rate > 60, Glucose Level 128H, Calcium Level 8.5, Total Bilirubin 1.0, Aspartate Amino Transf (AST/SGOT) 127H, Alanine Aminotransferase (ALT/SGPT) 82H, Alkaline Phosphatase 100, Total Protein 6.8, Albumin 2.2L, Globulin 4.6, Albumin/Globulin Ratio 0.5L 02/20/18 11:20: White Blood Count 8.7, Red Blood Count 4.57L, Hemoglobin 14.8, Hematocrit 44.6, Mean Corpuscular Volume 98, Mean Corpuscular Hemoglobin 32.3H, Mean Corpuscular Hemoglobin Concent 33.1, Red Cell Distribution Width 13.3, Platelet Count 159, Mean Platelet Volume 7.6, Neutrophils (%) (Auto) 83.2H, Lymphocytes (%) (Auto) 8.7L, Monocytes (%) (Auto) 3.2, Eosinophils (%) (Auto) 0.0, Basophils (%) (Auto ) 4.9H, Lactic Acid Level 4.10H Current Medications Medications (Trade) Dose Ordered Sig/Marie Route PRN Reason Start Time Stop Time Status Last Admin Dose Admin Acetaminophen (Tylenol) 650 mg Q4H PRN ORAL Mild Pain (Pain Scale 1-3) 02/18/18 22:30 03/20/18 22:29 Albuterol/ Ipratropium (Albuterol/ Ipratropium) 3 ml Q4H PRN HHN Shortness of Breath 02/19/18 14:00 02/24/18 13:59 02/20/18 17:19 Albuterol/ Ipratropium (Albuterol/ Ipratropium) 3 ml Q6HRT HHN 02/19/18 01:00 02/24/18 00:59 02/21/18 07:13 Amlodipine Besylate (Norvasc) 10 mg DAILY ORAL 02/19/18 09:00 03/21/18 08:59 02/19/18 08:08 Azithromycin (Zithromax) 1,200 mg ONCE A WEEK ORAL 02/21/18 09:00 02/28/18 08:59 Clonidine HCl (Catapres TTS-2) 1 patch QWEEK TDERMAL 02/19/18 12:00 03/21/18 11:59 02/19/18 13:08 Dextrose (Dextrose 50%) 25 ml STAT PRN IV Hypoglycemia 02/18/18 22:30 03/20/18 22:29 Dextrose (Dextrose 50%) 50 ml STAT PRN IV Hypoglycemia 02/18/18 22:30 03/20/18 22:29 Docusate Sodium (Colace) 100 mg EVERY 12 HOURS ORAL 02/18/18 22:30 03/20/18 22:29 02/20/18 21:08 Famotidine (Pepcid) 40 mg DAILY ORAL 02/19/18 09:00 03/21/18 08:59 02/19/18 08:07 Levofloxacin (Levaquin) 750 mg DAILY ORAL 02/21/18 09:00 02/28/18 08:59 Methylprednisolone Sodium Succinate (Solu-MEDROL) 40 mg EVERY 12 HOURS IVP 02/20/18 09:00 03/20/18 22:29 02/20/18 21:09 Morphine Sulfate (Morphine Sulfate) 2 mg Q3H PRN IVP Moderate Pain (Pain Scale 4-6) 02/18/18 22:45 02/25/18 22:44 Morphine Sulfate (Morphine Sulfate) 4 mg EVERY 3 HOURS PRN IVP Severe Pain (Pain Scale 7-10) 02/18/18 22:30 02/25/18 22:29 Temazepam (Restoril) 15 mg BEDTIME PRN ORAL INSOMNIA 02/18/18 22:30 02/25/18 22:29 Trimethoprim/ Sulfamethoxazole (Bactrim-DS) 1 tab TWICE A DAY ORAL 02/19/18 18:00 02/26/18 17:59 02/19/18 17:16 SAYRA BAILEY M.D. February 21, 2018 08:36
[2018-02-21] MEDS ORDERED: Azithromycin 600mg Tab ORAL SCH (09:00)
[2018-02-21] MEDS: Bactrim-DS 1 tab ORAL SCH (09:04)
[2018-02-21] MEDS: Docusate 100mg cap ORAL SCH (09:04)
[2018-02-21 09:26] VITALS: BP 156/99
--- NOTE | 2018-02-21 12:28 | Infectious Diseases Prog Note ---
Assessment/Plan Assessment/Plan A; COPD exacerbation HIV/AIDS CD4=4 Elevated transaminase Hepatitis C History of smoking & Substance abuse P; Continue Levaquin Continue MAC & PCP prophylaxis Resume ART Subjective ROS Limited/Unobtainable: No Constitutional: Reports: no symptoms Respiratory: Reports: no symptoms Cardiovascular: Reports: no symptoms Gastrointestinal/Abdominal: Reports: no symptoms Genitourinary: Reports: no symptoms Allergies: Coded Allergies: No Known Allergies (Verified , 04/12/08) Objective Vital Signs Last 24 Hour Vital Signs Date Time Temp Pulse Resp B/P (MAP) Pulse Ox O2 Delivery O2 Flow Rate FiO2 02/21/18 09:26 94 156/99 02/21/18 08:00 90 02/21/18 08:00 97.2 94 23 156/99 97 Nasal Cannula 2.0 97.2 02/21/18 07:25 89 20 99 Nasal Cannula 2.0 28 02/21/18 07:13 96 Nasal Cannula 2.0 28 02/21/18 07:13 Nasal Cannula 2.0 28 02/21/18 07:13 92 21 95 Nasal Cannula 2.0 28 02/21/18 04:00 102 02/21/18 04:00 97.5 94 19 129/79 95 Nasal Cannula 2.0 97.5 02/21/18 00:45 105 18 99 Nasal Cannula 2.0 28 02/21/18 00:37 101 22 97 Nasal Cannula 2.0 28 02/21/18 00:00 104 02/21/18 00:00 96.9 100 19 137/84 94 Nasal Cannula 2.0 96.9 02/20/18 20:00 109 02/20/18 20:00 97.3 109 19 130/75 97 Nasal Cannula 2.0 97.3 02/20/18 19:58 102 18 98 Nasal Cannula 2.0 28 02/20/18 19:35 Nasal Cannula 2.0 28 02/20/18 19:35 97 22 95 Nasal Cannula 2.0 28 02/20/18 19:35 96 Nasal Cannula 2.0 28 02/20/18 17:29 105 18 95 Nasal Cannula 2.0 28 02/20/18 17:19 114 24 95 Nasal Cannula 2.0 28 02/20/18 16:02 101 02/20/18 16:00 97.7 94 20 150/87 94 Nasal Cannula 2.0 97.7 102 02/20/18 13:30 96.4 108 18 161/102 99 Room Air 96.4 02/20/18 13:22 103 22 96 Nasal Cannula 2.0 28 02/20/18 13:11 101 18 94 Nasal Cannula 2.0 28 Height (Feet): 6 Height (Inches): 0.00 Weight (Pounds): 160 HEENT: mucous membranes moist Respiratory/Chest: lungs clear Cardiovascular: normal rate Abdomen: soft, non tender Extremities: no edema Neurologic/Psychiatric: alert, oriented x 3, responsive Microbiology Date/Time Source Procedure Growth Status 02/18/18 18:55 Blood Blood Culture - Preliminary NO GROWTH AFTER 48 HOURS Resulted 02/18/18 18:45 Blood Blood Culture - Preliminary NO GROWTH AFTER 48 HOURS Resulted 02/18/18 19:27 Urine,Clean Catch Urine Culture - Final Mixed Gram Positive Organism Complete Current Medications Medications (Trade) Dose Ordered Sig/Marie Route PRN Reason Start Time Stop Time Status Last Admin Dose Admin Acetaminophen (Tylenol) 650 mg Q4H PRN ORAL Mild Pain (Pain Scale 1-3) 02/18/18 22:30 03/20/18 22:29 Albuterol/ Ipratropium (Albuterol/ Ipratropium) 3 ml Q4H PRN HHN Shortness of Breath 02/19/18 14:00 02/24/18 13:59 02/20/18 17:19 Albuterol/ Ipratropium (Albuterol/ Ipratropium) 3 ml Q6HRT HHN 02/19/18 01:00 02/24/18 00:59 02/21/18 07:13 Amlodipine Besylate (Norvasc) 10 mg DAILY ORAL 02/19/18 09:00 03/21/18 08:59 02/21/18 09:26 Azithromycin (Zithromax) 1,200 mg ONCE A WEEK ORAL 02/21/18 09:00 02/28/18 08:59 02/21/18 09:05 Clonidine HCl (Catapres TTS-2) 1 patch QWEEK TDERMAL 02/19/18 12:00 03/21/18 11:59 02/19/18 13:08 Dextrose (Dextrose 50%) 25 ml STAT PRN IV Hypoglycemia 02/18/18 22:30 03/20/18 22:29 Dextrose (Dextrose 50%) 50 ml STAT PRN IV Hypoglycemia 02/18/18 22:30 03/20/18 22:29 Docusate Sodium (Colace) 100 mg EVERY 12 HOURS ORAL 02/18/18 22:30 03/20/18 22:29 02/21/18 09:04 Famotidine (Pepcid) 40 mg DAILY ORAL 02/19/18 09:00 03/21/18 08:59 02/21/18 09:04 Levofloxacin (Levaquin) 750 mg DAILY ORAL 02/21/18 09:00 02/28/18 08:59 02/21/18 09:04 Morphine Sulfate (Morphine Sulfate) 2 mg Q3H PRN IVP Moderate Pain (Pain Scale 4-6) 02/18/18 22:45 02/25/18 22:44 Morphine Sulfate (Morphine Sulfate) 4 mg EVERY 3 HOURS PRN IVP Severe Pain (Pain Scale 7-10) 02/18/18 22:30 02/25/18 22:29 Prednisone (predniSONE) 40 mg Q12HR ORAL 02/21/18 09:00 03/23/18 08:59 02/21/18 09:17 Temazepam (Restoril) 15 mg BEDTIME PRN ORAL INSOMNIA 02/18/18 22:30 02/25/18 22:29 Trimethoprim/ Sulfamethoxazole (Bactrim-DS) 1 tab TWICE A DAY ORAL 02/19/18 18:00 02/26/18 17:59 02/21/18 09:04 EULA VALERO February 21, 2018 12:28
--- NOTE | 2018-02-21 13:48 | Diagnostic Imaging Report ---
Indication: Elevated lipase and liver function tests Technique: Grayscale and duplex Doppler imaging of the abdomen performed. Comparison: None Findings: There is trace ascites. The liver is unremarkable. The main portal vein is patent. CBD is 4 mm in diameter. Gallbladder is identified and slightly contracted. There is no hydronephrosis. No splenomegaly demonstrated. There is a trace left pleural effusion appreciated. Aorta and IVC are not well seen on this examination. Pancreas poorly seen. IMPRESSION: Trace ascites. Trace left pleural effusion.
--- NOTE | 2018-02-23 15:17 | Discharge Summary ---
Discharge Summary Hospital Course Date of Admission Feb 18, 2018 at 21:06 Date of Discharge February 21, 2018 at 13:20 Admitting Diagnosis CHRONIC OBSTRUCTIVE PULMONARY DISEASE/ EXACERBATIO HPI Dilip Manzano is a 67 year old male who was admitted on Feb 18, 2018 at 21:06 for Chronic Obstructive Pulmonary Disease Exacerbation Hospital Course [id number] Discharge Discharge Disposition Patient left Danii Stark NP February 23, 2018 15:17
--- NOTE | 2018-02-24 02:45 | Discharge Summary 2 SIG ---
DATE OF ADMISSION: 02/18/2018 DATE OF DISCHARGE: 02/21/2018 CONSULTANTS: 1. Steven Crabtree M.D. 2. Agusto Hamilton M.D. BRIEF HOSPITAL COURSE: The patient is a 67-year-old male with history of chronic obstructive pulmonary disease. He stated he was just at [facility] last month for shortness of breath and COPD exacerbation. He again got short of breath the night prior to admission and he called paramedics. He used to take his inhalers four to five times without any effect. He was seen at the emergency room. Chest x-ray showed hyperinflated lungs with no infiltrates. Blood work with no leukocytosis. Lactate was 3.2. He was then admitted for acute COPD exacerbation. He has history of hypertension and HIV. He was given Duo-Neb breathing treatment and was given Solu-Medrol. He was placed on azithromycin and Bactrim for PCP prophylaxis and is also on Levaquin for urinary tract infection. The patient is unsure of his CD4 count or viral load. HIV serology was done. CD4 count 4. Solu-Medrol was discontinued and was eventually started on prednisone 4 mg b.i.d. Urine culture showed growth of mixed Gram-positive organisms. Blood culture did not isolate any growth. Full treatment was not carried out, as the patient left against medical advice. FINAL DIAGNOSES: 1. Acute COPD exacerbation. 2. Urinary tract infection. 3. Abnormal liver transaminases. 4. HIV. 5. Hepatitis C. 6. History of smoking and substance abuse. 7. Noncompliance, as the patient signed out against medical advice. DISPOSITION: The patient left AMA. Solitario Crabtree M.D. I have been assigned to dictate discharge summary on this account and I was not involved in the patient's management. Danii Haas N.P. DR: PABLO JOB#: [id number] CC: JACOB
== END 2018-02-21 13:20 | disposition left against medical advice (07) | DRG 190 ==
LOC: EDBD 18:32 → EMR 19:00 → 2E 21:06 → EDBEDREQ 21:11 → 2E 23:25
DX: J44.1 Chronic obstructive pulmonary disease with (acute) exacerbation (principal); B20 Human immunodeficiency virus [HIV] disease; N39.0 Urinary tract infection, site not specified; E87.2 Acidosis; Z87.891 Personal history of nicotine dependence; I10 Essential (primary) hypertension; Z86.19 Personal history of other infectious and parasitic diseases; R79.89 Other specified abnormal findings of blood chemistry
CPT/HCPCS: 36415; 36600; 71045; 76700; 80053; 81003; 82248; 82803; 83605; 83690; 83880; 84484; 85025; 86360; 87040; 87086; 87536; 93005; 94640; 94760; 99285; J7620

== ENCOUNTER 2018-09-25 15:44 | Emergency (ER) | payer OTHER ==
[~2018-09-25] VITALS: Ht 185.4 cm; Wt 72.6 kg
[2018-09-25] MEDS ORDERED: UNOBMED (16:06)
--- NOTE | 2018-09-25 16:17 | Emergency Room Report ---
History of Present Illness General Chief Complaint: Skin Rash/Abscess Source: Patient Present Illness HPI 67-year-old male patient presents ER complaining of abscess on his right upper arm. Reports has been present for a week and has grown in size. Denies fever, chest pain, shortness of breath, abdominal pain. Denies vomiting or diarrhea. Reports history of IV drug use, states abscess that is where he injects IV heroin, states last used 2 months ago. Denies history of diabetes. reports up to date on tetanus vaccination, last received few months ago. reports history of HIV, states last tested several months ago, states viral load was undetectable and CD4 count was elevated, states stopped taking medications since that time. patient no longer seeing PCP so he stopped taking medication, was unclear on rationale. Allergies: Coded Allergies: No Known Allergies (Verified , 04/12/08) Patient History Past Medical History: see triage record Reviewed Nursing Documentation: PMH: Agreed; PSxH: Agreed Nursing Documentation-PMH Past Medical History: No History, Except For Hx Cardiac Problems: Yes Hx Hypertension: Yes Hx Asthma: Yes Hx COPD: Yes - HIV Hx Cancer: No Hx Gastrointestinal Problems: No Hx Neurological Problems: No Review of Systems All Other Systems: negative except mentioned in HPI Physical Exam Vital Signs Date Time Temp Pulse Resp B/P (MAP) Pulse Ox O2 Delivery O2 Flow Rate FiO2 09/25/18 15:54 98.1 95 18 160/104 94 Room Air Sp02 EP Interpretation: reviewed, normal General Appearance: well appearing, no apparent distress, alert, GCS 15, non- toxic Head: normocephalic, atraumatic Eyes: bilateral eye normal inspection, bilateral eye PERRL ENT: hearing grossly normal, normal pharynx, no angioedema, normal voice, uvula midline, moist mucus membranes Neck: full range of motion Respiratory: lungs clear, normal breath sounds, no rhonchi, no respiratory distress, no accessory muscle use, no wheezing, speaking full sentences Cardiovascular #1: regular rate, rhythm, no edema Cardiovascular #2: 2+ radial (R), 2+ radial (L) Musculoskeletal: back normal, digits/nails normal, gait/station normal, normal range of motion, non-tender Neurologic: alert, oriented x3, responsive, motor strength/tone normal, sensory intact Psychiatric: mood/affect normal Skin: other - 4 cm fluctuant abscess on right upper extremity, erythematous, no surrounding erythema or edema, no red streaking, not draining Procedures Incision and Drainage Incision and Drainage : Consent: Verbal Site: right upper extremity Blade Size: 11 I & D Procedure: betadine prep, sterile drapes applied, sterile dressing applied Wound Location: upper extremity Wound's Depth, Shape: superficial Wound Length (cm): 4 Wound Explored: contaminated Irrigated w/ Saline (ccs): 10 Anesthesia: 1% Lidocaine Volume Anesthetic (ccs): 2 Splint Applied?: No Sling Applied?: Yes Patient Tolerated: Well Complications: None Medical Decision Making PA Attestation Dr. Macias is my supervising Physician whom patient management has been discussed with. Diagnostic Impression: Primary Impression: Abscess Additional Impression: History of HIV or AIDS ER Course Pt. presents to the ED c/o abscess right upper extremity. Ddx considered but are not limited to rash, cellulitis, abscess, sebaceous cyst , carbuncle, osteomyelitis, drug use. Does not require imaging at this time. Vital signs: are WNL, pt. is afebrile ED INTERVENTIONS: form patient to follow-up with HIV clinic or primary care provider to begin taking HIV medications again. Provided with contact information for HIV clinics. Advised again sexual activity while not taking medication. x-ray right upper extremity shows no acute disease . Preliminary reading, no signs of deeper bone infection, no subcutaneous gas. local and Field block of abscess performed with lidocaine. I&D of abscess performed. pus expressed. Culture of expressed pus obtained and sent to lab. See procedure note. Wound packed with iodoform gauze packing Sterile dressing applied to wound following procedure. will cover with doxycycline to cover for MRSA infection due to drug use. Advised against drug use. Follow-up with outpatient drug rehabilitation center. ER precautions given. Return to the ER in 2-3 days to have wound checked and repacked. DISCHARGE: -Rx provided for doxycycline -Rx provided for Tylenol At this time pt. is stable for d/c to home. Patient is resting comfortably, in no acute distress, nontoxic appearing. Will provide printed patient care instructions and any necessary prescriptions. Care plan and follow up instructions have been discussed with the patient prior to discharge. Patient instructed to follow-up with primary care provider in 2 - 3 days for wound recheck. Patient questions asked and answered. Patient reports understanding and agreement to treatment plan. ER precautions given. Patient instructed to return to ER immediately for any new or worsening of symptoms including but not limited to fever, worsening of pain symptoms, worsening of erythema, red streaking. - Please note that this Emergency Department Report was dictated using Silver Pushrel[employer] man technology software, occasionally this can lead to erroneous entry secondary to interpretation by the dictation equipment. Other X-Ray Diagnostic Results Other X-Ray Diagnostic Results : X-Ray ordered: right humerus # of Views/Limited Vs Complete: 2 View Indication: Pain EP Interpretation: Yes PA Xray: Interpretation reviewed, by supervising MD, and agrees with findings. Interpretation: no dislocation, no soft tissue swelling, no fractures Impression: No acute disease JOVAN Scribzaira Text Lalit Joy PA-C Last Vital Signs Date Time Temp Pulse Resp B/P (MAP) Pulse Ox O2 Delivery O2 Flow Rate FiO2 09/25/18 15:54 98.1 95 18 160/104 94 Room Air Status: improved Disposition: HOME, SELF-CARE Condition: Stable Scripts Acetaminophen* (TYLENOL EXTRA STRENGTH*) 500 Mg Tablet 500 MG ORAL Q8H PRN for Prn Headache/Temp > 101, #30 TAB 0 Refills Prov: Dawood Joy 09/25/18 Doxycycline Monohydrate* (DOXYCYCLINE MONOHYDRATE*) 100 Mg Capsule 100 MG ORAL TWICE A DAY, #14 CAP 0 Refills Prov: Dawood Joy 09/25/18 Patient Instructions: Abscess, HIV Infection and AIDS Additional Instructions: Followup with PCP in 2-3 days for wound check and to have gauze wick replaced. Follow-up with HIV clinic to begin taking medication again. Advised against sexual encounters without protection. Take medications as instructed. Patient questions asked and answered. Apply warm compresses to affected area. Keep wound clean and dry. ER precautions given. Return to ER for new or worsening of symptoms including but not limited to chest pain, SOB, red streaking, worsening of abscess, intractable vomiting. Dawood Joy Sep 25, 2018 16:17
[2018-09-25] MEDS ORDERED: Lidocaine 1% MPF 10mg/ml 5ml IM ONE (16:30)
[2018-09-25] MEDS ORDERED: Tetanus/Diptheria/Pertussis Vaccine 0.5ml Syr IM ONE (16:30)
[2018-09-25 16:33] VITALS: BP 158/100
--- NOTE | 2018-09-25 17:09 | Diagnostic Imaging Report ---
Indications: Pain, trauma Technique: Two views of the right humerus Comparison: None Findings: No acute fractures. No dislocations. Joint spaces are preserved Impression: Negative
[2018-09-25] MEDS ORDERED: DOXYCYCLINE MO100 MG ORAL (17:36)
[2018-09-25] MEDS ORDERED: TYLENOL EXTRA500 MG ORAL (17:36)
== END 2018-09-25 18:00 | disposition home or self-care (01) ==
LOC: EMR 17:49
DX: L02.413 Cutaneous abscess of right upper limb (principal); I10 Essential (primary) hypertension; J45.909 Unspecified asthma, uncomplicated; Z87.898 Personal history of other specified conditions
CPT/HCPCS: 87070; 87075; 87205; 90471; 90715; 96372; 99283

== ENCOUNTER 2018-09-29 14:07 | Emergency (ER) | payer OTHER ==
[~2018-09-29] VITALS: Ht 185.4 cm; Wt 72.6 kg
[~2018-09-29 14:07] MED LIST changes: +TYLENOL EXTRA500 MG ORAL
[2018-09-29 14:20] VITALS: BP 158/68
[2018-09-29] MEDS ORDERED: NKM (14:22)
[2018-09-29] MEDS ORDERED: Tylenol #3 tab (300mg/30mg) ORAL ONE (15:00)
[2018-09-29] MEDS ORDERED: TYLENOL EXTRA500 MG ORAL (15:05)
[2018-09-29 15:36] VITALS: BP 158/68
--- NOTE | 2018-09-29 22:31 | Emergency Room Report ---
History of Present Illness General Chief Complaint: Wound Recheck/Suture Removal Source: Patient, Medical Record Present Illness HPI Patient is a 67-year-old male presenting for abscess wound check. He was seen here 4 days prior for incision and drainage. He is taking antibiotics as prescribed. He states that pain has decreased and is now a 3 out of 10 dull ache. Does not radiate. He denies any other symptoms including fever, chills, rash Allergies: Coded Allergies: No Known Allergies (Verified , 04/12/08) Patient History Past Medical History: see triage record Pertinent Family History: none Reviewed Nursing Documentation: PMH: Agreed; PSxH: Agreed Nursing Documentation-PMH Past Medical History: No History, Except For Hx Cardiac Problems: Yes Hx Hypertension: Yes Hx Asthma: Yes Hx COPD: Yes - HIV Hx Cancer: No Hx Gastrointestinal Problems: No Hx Neurological Problems: No Review of Systems All Other Systems: negative except mentioned in HPI Physical Exam Vital Signs Date Time Temp Pulse Resp B/P (MAP) Pulse Ox O2 Delivery O2 Flow Rate FiO2 09/29/18 14:19 98.1 75 18 164/99 95 Room Air Sp02 EP Interpretation: reviewed, normal General Appearance: no apparent distress, alert, GCS 15, non-toxic Head: normocephalic, atraumatic Eyes: bilateral eye normal inspection, bilateral eye PERRL Musculoskeletal: back normal, gait/station normal, normal range of motion Neurologic: alert, oriented x3, responsive, motor strength/tone normal, sensory intact, speech normal Psychiatric: judgement/insight normal, memory normal, mood/affect normal, no suicidal/homicidal ideation Skin: other - abscess of R arm over tricep has packing. No DC. No surrounding erythema. Lymphatic: no adenopathy Medical Decision Making PA Attestation Dr. Macias is my supervising physician. Patient management was discussed with my supervising physician Diagnostic Impression: Primary Impression: Encounter for wound re-check ER Course Patient is a 67-year-old male presenting for abscess wound check. Differential diagnoses considered but not limited to: abscess, cellulitis, non healing wound, among others PE: Afebrile. NAD abscess of R arm over triceps has packing in place. Wick visible. No DC. No surrounding erythema. The packing is removed without difficulty. Surrounding area is cleaned. New dressing applied. Pt is to continue taking abx and F/U with PCP. ER precautions given Last Vital Signs Date Time Temp Pulse Resp B/P (MAP) Pulse Ox O2 Delivery O2 Flow Rate FiO2 09/29/18 16:02 98.0 09/29/18 15:36 75 16 158/68 95 Room Air Status: improved Disposition: HOME, SELF-CARE Condition: Improved Scripts Acetaminophen* (TYLENOL EXTRA STRENGTH*) 500 Mg Tablet 500 MG ORAL Q8H PRN for Prn Headache/Temp > 101, #30 TAB 0 Refills Prov: PORTER NIX 09/29/18 Referrals: [facility],REFERRING (PCP) Patient Instructions: Abscess, [id number], Wound Check Additional Instructions: I discussed my findings with the patient. All questions and concerns have been answered. Treatment and medication compliance have been addressed. I advised the patient that they need to follow up with PMD in 3-5 days. Continue antibiotics as prescribed. PORTER NIX Sep 29, 2018 22:31
== END 2018-09-29 15:36 | disposition home or self-care (01) ==
LOC: EMR 14:55
DX: Z48.00 Encounter for change or removal of nonsurgical wound dressing (principal); L02.413 Cutaneous abscess of right upper limb; I10 Essential (primary) hypertension; J45.909 Unspecified asthma, uncomplicated
CPT/HCPCS: 99283

== ENCOUNTER 2019-06-23 10:25 | Emergency (ER) | payer MEDICARE, OTHER ==
[~2019-06-23] VITALS: Ht 185.4 cm; Wt 81.6 kg
[~2019-06-23 10:25] MED LIST changes: +NKM
[2019-06-23 10:30] VITALS: BP 142/76
--- NOTE | 2019-06-23 10:35 | NUR ---
ED Nurse Note: Resident brought in to ER by RA from bus stop due to syncopal. As per patient, he feels dizzy and passed out. No SOB. O2 sat at 90%. On O2 tx @2LPM, O2 goes up to 92%. Breathing even and unlabored. Denies any pain, n/v. Alert and oriented x3. Appears lethargic.
--- NOTE | 2019-06-23 11:05 | NUR ---
ED Nurse Note: Went down to CT.
--- NOTE | 2019-06-23 11:30 | NUR ---
ED Nurse Note: Came back from CT.
--- NOTE | 2019-06-23 11:42 | Diagnostic Imaging Report ---
EXAM: CT Head Without Intravenous Contrast CLINICAL HISTORY: SYNCOPE TECHNIQUE: Axial computed tomography images of the head/brain without intravenous contrast. CTDI is 70.38 mGy and DLP is 2400 mGy-cm. One or more of the following dose reduction techniques were used: automated exposure control, adjustment of the mA and/or kV according to patient size, use of iterative reconstruction technique. Coronal reformatted images were created and reviewed. COMPARISON: No relevant prior studies available. FINDINGS: Brain: Generalized parenchymal volume loss, likely age-related. Periventricular white matter hypodensities. 5 mm hypodensity in the left thalamus. No evidence of acute intracranial hemorrhage. No mass effect or midline shift. Ventricles: Unremarkable. No ventriculomegaly. Bones/joints: Unremarkable. No acute fracture. Soft tissues: Unremarkable. Sinuses: Unremarkable as visualized. No acute sinusitis. Mastoid air cells: Unremarkable as visualized. No mastoid effusion. IMPRESSION: 1. No acute intracranial findings. 2. 5 mm hypodensity in the left thalamus, likely a chronic lacunar infarct. 3. Periventricular white matter hypodensities, likely related to chronic small vessel disease changes. 4. Generalized cerebral parenchymal volume loss, likely age-related.
--- NOTE | 2019-06-23 11:47 | Diagnostic Imaging Report ---
EXAM: XR Chest, 1 View CLINICAL HISTORY: SYNCOPE TECHNIQUE: Frontal view of the chest. COMPARISON: No relevant prior studies available. FINDINGS: Lungs: Mild emphysematous changes in the upper lung zones. The lungs are otherwise clear. Pleural space: Unremarkable. The costophrenic angles are sharp. No visible pneumothorax. Heart: Unremarkable. No cardiomegaly. Mediastinum: Unremarkable. Bones/joints: Unremarkable. Tubes, lines and devices: EKG patches as well as a radiodense wire overlie the thorax. IMPRESSION: 1. No acute findings. 2. Emphysematous changes in the upper lung zones.
[2019-06-23 12:15] LABS: BASOPHILS % (AUTO) 3.8 % (0.0-2.0); EOSINOPHILS % (AUTO) 1.3 % (0.0-3.0); HEMATOCRIT 46.3 % (42.0-52.0); HEMOGLOBIN 14.9 G/DL (14.2-18.0); LYMPHOCYTES % (AUTO) 6.6 % (20.0-45.0); MEAN CORPUSCULAR VOLUME 100 FL (80-99); MONOCYTES % (AUTO) 4.2 % (1.0-10.0); NEUTROPHILS % (AUTO) 84.1 % (45.0-75.0); PLATELET COUNT 128 K/UL (150-450); RED BLOOD COUNT 4.64 M/UL (4.70-6.10); RED CELL DISTRIBUTION WIDTH 12.3 % (11.6-14.8); WHITE BLOOD COUNT 6.8 K/UL (4.8-10.8)
[2019-06-23 12:18] LABS: ANION GAP 7 mmol/L (5-15); BLOOD UREA NITROGEN 13 mg/dL (7-18); CALCIUM 8.5 MG/DL (8.5-10.1); CARBON DIOXIDE 27 MMOL/L (21-32); CHLORIDE 107 MMOL/L (98-107); CREATININE 1.2 MG/DL (0.55-1.30); POTASSIUM 3.6 MMOL/L (3.5-5.1); SODIUM 141 MMOL/L (136-145)
[2019-06-23 12:31] LABS: ALANINE AMINOTRANSFERASE 42 U/L (12-78); ALBUMIN 2.4 G/DL (3.4-5.0); ALBUMIN/GLOBULIN RATIO 0.4 (1.0-2.7); ALKALINE PHOSPHATASE 109 U/L (46-116); ASPARTATE AMINO TRANSFERASE 80 U/L (15-37); BILIRUBIN,TOTAL 1.1 MG/DL (0.2-1.0); CKMB 3.2 NG/ML (0.0-3.6); CREATINE KINASE 176 U/L (26-308)
[2019-06-23 12:32] LABS: BILIRUBIN,DIRECT 0.7 MG/DL (0.0-0.3)
[2019-06-23 12:45] LABS: APPEARANCE,URINE CLEAR; BILIRUBIN, URINE NEGATIVE (NEGATIVE); GLUCOSE, URINE (UA) 1+ (NEGATIVE); KETONES,URINE NEGATIVE (NEGATIVE); LEUKOCYTE ESTERASE ,URINE 1+ (NEGATIVE); NITRITE,URINE NEGATIVE (NEGATIVE); PH,URINE 5 (4.5-8.0); PROTEIN,URINE 2+ (NEGATIVE); UROBILINOGEN,URINE 1 MG/DL (0.0-1.0)
[2019-06-23 12:54] VITALS: BP 154/86
[2019-06-23] MEDS ORDERED: NKM (12:55)
[2019-06-23 12:56] LABS: COLOR,URINE YELLOW
[2019-06-23] MEDS ORDERED: UNOBMED (12:56)
--- NOTE | 2019-06-23 13:00 | NUR ---
ED Nurse Note: pt awake and oriented x4. per pt, drank too much. able to provide home address and telephone number. ambulatory with steady gait. per pt, ready to go home. will wait for the further order.
[2019-06-23] MEDS ORDERED: LISINOPRIL20 MG ORAL (13:11)
[2019-06-23 13:22] VITALS: BP 144/71
--- NOTE | 2019-06-23 13:23 | NUR ---
ER DISCHARGE NOTE: Patient is cleared to be discharged per ERMD, pt is aox4, on room air, with stable vital signs. pt was given dc and prescription instructions, pt was able to verbalize understanding, pt id band and iv site removed without complications. pt is able to ambulate with steady gait. pt took all belongings.
--- NOTE | 2019-06-23 14:03 | Emergency Room Report ---
History of Present Illness General Chief Complaint: General Complaint Source: Patient Present Illness HPI 68-year-old male presents ED for evaluation. Brought in by EMS for evaluation. Witnesses state patient syncopized today on the streets. Unclear whether patient hit his head. Patient states he feels weak. Denies any headache. Denies any nausea or vomiting. Denies chest pain. Denies alcohol or drug use. No other aggravating relieving factors. Denies any other associated symptoms Allergies: Coded Allergies: No Known Allergies (Verified , 04/12/08) Patient History Past Medical History: HTN, asthma, HIV Past Surgical History: none Pertinent Family History: none Social History: Denies: smoking, alcohol use, drug use Immunizations: UTD Reviewed Nursing Documentation: PMH: Agreed; PSxH: Agreed Nursing Documentation-PMH Hx Cardiac Problems: Yes Hx Hypertension: Yes Hx Asthma: Yes Hx COPD: Yes - HIV Hx Cancer: No Hx Gastrointestinal Problems: No Hx Neurological Problems: No Review of Systems All Other Systems: negative except mentioned in HPI Physical Exam Vital Signs Date Time Temp Pulse Resp B/P (MAP) Pulse Ox O2 Delivery O2 Flow Rate FiO2 06/23/19 10:21 97.9 84 15 180/101 (127) 96 Room Air 06/23/19 10:30 2.0 97 Sp02 EP Interpretation: reviewed, normal General Appearance: no apparent distress, alert, GCS 15, non-toxic, thin Head: normocephalic, atraumatic Eyes: bilateral eye normal inspection, bilateral eye PERRL ENT: hearing grossly normal, normal pharynx, no angioedema, normal voice Neck: full range of motion, supple/symm/no masses Respiratory: chest non-tender, lungs clear, normal breath sounds, speaking full sentences Cardiovascular #1: regular rate, rhythm, no edema Cardiovascular #2: 2+ carotid (R), 2+ carotid (L), 2+ radial (R), 2+ radial (L) , 2+ dorsalis pedis (R), 2+ dorsalis pedis (L) Gastrointestinal: normal bowel sounds, non tender, soft, non-distended, no guarding, no rebound Rectal: deferred Genitourinary: normal inspection, no CVA tenderness Musculoskeletal: back normal, gait/station normal, normal range of motion, non- tender Neurologic: alert, oriented x3, responsive, motor strength/tone normal, sensory intact, speech normal Psychiatric: judgement/insight normal, memory normal, mood/affect normal, no suicidal/homicidal ideation Reflexes: 3+ bicep (R), 3+ bicep (L), 3+ tricep (R), 3+ tricep (L), 3+ knee (R) , 3+ knee (L) Lymphatic: no adenopathy Medical Decision Making Diagnostic Impression: Primary Impression: Substance abuse Additional Impression: Syncope Qualified Codes: R55 - Syncope and collapse ER Course Hospital Course 68-year-old male presents ED s/p syncopal episode. Differential diagnoses include: arrythmia, dehydration, intracranial bleed, seizure Clinical course Patient placed on stretcher. on mill controller. After initial history and physical I ordered labs, EKG, chest Xray, IVFs, CT Brain labs reviewed- no leukocytosis, Hb/Hct stable, electrolytes ok, troponins negative , Utox + opiates + cocaine, ETOH elevated CT Brain - no acute process, old infarcts noted Chest x-ray- hyperinflated lungs EKG -NSR, no acute ischemic changes iterpreted by me Upon reassessment patient states he feels better wishes to go home. Discussed findings with patient. Explained that substance abuse with alcohol can lead to similar presentations. Safe for discharge with close outpatient follow-up. I will provide referrals. Requesting refill of his lisinopril I. I feel this is a highly complex case requiring extensive working including EKG/Rhythm strip, Xray/CT/US, Blood/urine lab work, repeat exams while in ED, and administration of strong opiates/narcotics for pain control, admission to hospital or close patient follow up. Diagnosis - syncope, substance abuse Stable and discharged to home. Followup with PMD. Return to ED if symptoms recur or worsen Labs Test 06/23/19 11:49 06/23/19 12:34 White Blood Count 6.8 K/UL (4.8-10.8) Red Blood Count 4.64 M/UL (4.70-6.10) Hemoglobin 14.9 G/DL (14.2-18.0) Hematocrit 46.3 % (42.0-52.0) Mean Corpuscular Volume 100 FL (80-99) Mean Corpuscular Hemoglobin 32.2 PG (27.0-31.0) Mean Corpuscular Hemoglobin Concent 32.2 G/DL (32.0-36.0) Red Cell Distribution Width 12.3 % (11.6-14.8) Platelet Count 128 K/UL (150-450) Mean Platelet Volume 7.7 FL (6.5-10.1) Neutrophils (%) (Auto) 84.1 % (45.0-75.0) Lymphocytes (%) (Auto) 6.6 % (20.0-45.0) Monocytes (%) (Auto) 4.2 % (1.0-10.0) Eosinophils (%) (Auto) 1.3 % (0.0-3.0) Basophils (%) (Auto) 3.8 % (0.0-2.0) Sodium Level 141 MMOL/L (136-145) Potassium Level 3.6 MMOL/L (3.5-5.1) Chloride Level 107 MMOL/L (98-107) Carbon Dioxide Level 27 MMOL/L (21-32) Anion Gap 7 mmol/L (5-15) Blood Urea Nitrogen 13 mg/dL (7-18) Creatinine 1.2 MG/DL (0.55-1.30) Estimat Glomerular Filtration Rate > 60 mL/min (>60) Glucose Level 78 MG/DL (74-106) Calcium Level 8.5 MG/DL (8.5-10.1) Total Bilirubin 1.1 MG/DL (0.2-1.0) Direct Bilirubin 0.7 MG/DL (0.0-0.3) Aspartate Amino Transf (AST/SGOT) 80 U/L (15-37) Alanine Aminotransferase (ALT/SGPT) 42 U/L (12-78) Alkaline Phosphatase 109 U/L (46-116) Total Creatine Kinase 176 U/L (26-308) Creatine Kinase MB 3.2 NG/ML (0.0-3.6) Creatine Kinase MB Relative Index 1.8 Troponin I 0.000 ng/mL (0.000-0.056) Pro-B-Type Natriuretic Peptide 212 pg/mL (0-125) Total Protein 8.0 G/DL (6.4-8.2) Albumin 2.4 G/DL (3.4-5.0) Globulin 5.6 g/dL Albumin/Globulin Ratio 0.4 (1.0-2.7) Serum Alcohol 129 mg/dL Urine Color Yellow Urine Appearance Clear Urine pH 5 (4.5-8.0) Urine Specific [place] 1.020 (1.005-1.035) Urine Protein 2+ (NEGATIVE) Urine Glucose (UA) 1+ (NEGATIVE) Urine Ketones Negative (NEGATIVE) Urine Blood 1+ (NEGATIVE) Urine Nitrite Negative (NEGATIVE) Urine Bilirubin Negative (NEGATIVE) Urine Urobilinogen 1 MG/DL (0.0-1.0) Urine Leukocyte Esterase 1+ (NEGATIVE) Urine RBC 0-2 /HPF (0 - 0) Urine WBC 5-10 /HPF (0 - 0) Urine Squamous Epithelial Cells Few /LPF (NONE/OCC) Urine Bacteria Occasional /HPF (NONE) Urine Opiates Screen Positive (NEGATIVE) Urine Barbiturates Screen Negative (NEGATIVE) Phencyclidine (PCP) Screen Negative (NEGATIVE) Urine Amphetamines Screen Negative (NEGATIVE) Urine Benzodiazepines Screen Negative (NEGATIVE) Urine Cocaine Screen Positive (NEGATIVE) Urine Marijuana (THC) Screen Negative (NEGATIVE) EKG Diagnostic Results Rate: normal Rhythm: NSR ST Segments: no acute changes ASA given to the pt in ED: No Rhythm Strip Diag. Results EP Interpretation: yes Rhythm: NSR, no PVC's, no ectopy Chest X-Ray Diagnostic Results Chest X-Ray Diagnostic Results : Chest X-Ray Ordered: Yes # of Views/Limited/Complete: 1 View Indication: Other EP Interpretation: Yes Interpretation: no consolidation, no effusion, no pneumothorax, no acute cardiopulmonary disease, other - hyperinflated Impression: Other - emphysema Electronically Signed by: Electronically signed by Anderson Alvarez MD CT/MRI/US Diagnostic Results CT/MRI/US Diagnostic Results : Imaging Test Ordered: CT Head Impression FINDINGS: Brain: Generalized parenchymal volume loss, likely age-related. Periventricular white matter hypodensities. 5 mm hypodensity in the left thalamus. No evidence of acute intracranial hemorrhage. No mass effect or midline shift. Ventricles: Unremarkable. No ventriculomegaly. Bones/joints: Unremarkable. No acute fracture. Soft tissues: Unremarkable. Sinuses: Unremarkable as visualized. No acute sinusitis. Mastoid air cells: Unremarkable as visualized. No mastoid effusion. Last Vital Signs Date Time Temp Pulse Resp B/P (MAP) Pulse Ox O2 Delivery O2 Flow Rate FiO2 06/23/19 13:22 98.1 80 16 144/71 99 Room Air 97 06/23/19 12:54 1.0 Status: improved Disposition: HOME, SELF-CARE Condition: Stable Scripts Lisinopril (LISINOPRIL*) 20 Mg Tablet 20 MG ORAL DAILY, #14 TAB Prov: Anderson Alvarez MD 06/23/19 Patient Instructions: Syncope, [id number] Anderson Alvarez MD Jun 23, 2019 14:03
--- NOTE | 2019-06-26 11:36 | Cardiology Report ---
APPROVED REPORT EKG Measurement Heart [id number] ID [id number] Normal sinus rhythm Right atrial enlargement Nonspecific ST and T wave abnormality Abnormal ECG
== END 2019-06-23 13:24 | disposition home or self-care (01) ==
LOC: EDBD 10:25 → EMR 10:53
DX: R55 Syncope and collapse (principal); F19.10 Other psychoactive substance abuse, uncomplicated; I10 Essential (primary) hypertension; B20 Human immunodeficiency virus [HIV] disease; J45.909 Unspecified asthma, uncomplicated
CPT/HCPCS: 36415; 70450; 71045; 80053; 80307; 81003; 82248; 82550; 82553; 83880; 84484; 85025; 93005; 96360; 99284; G0480; 80329

== ENCOUNTER 2019-07-23 15:23 | Inpatient (IN) | payer MEDICARE, OTHER ==
[~2019-07-23] VITALS: Ht 188 cm; Wt 55.8 kg
[~2019-07-23 15:23] MED LIST changes: +LISINOPRIL20 MG ORAL
--- NOTE | 2019-07-23 15:34 | Emergency Room Report ---
History of Present Illness General Chief Complaint: Multiple Trauma/Fall Source: Patient, EMS Present Illness HPI Patient is a 68-year-old male brought in by EMS after reportedly multiple falls. Patient had been noted to have prior history of HIV. He had been noted to be increasingly unsteady. Per paramedics patient had recent alcohol intake. Patient does report having some itchiness to his face. Left side of his head was noted to have some recent trauma after the fall.History is markedly limited by patient's mental status. Allergies: Coded Allergies: No Known Allergies (Verified , 04/12/08) Patient History Past Medical History: see triage record Reviewed Nursing Documentation: PMH: Agreed; PSxH: Agreed Nursing Documentation-PMH Past Medical History: No History, Except For Hx Hypertension: Yes Hx Asthma: Yes Hx COPD: Yes - HIV Hx Cancer: No Hx Gastrointestinal Problems: No Hx Neurological Problems: No Review of Systems All Other Systems: limited - Review of systems: Review systems is limited by patient's being a poor historian Physical Exam Vital Signs Date Time Temp Pulse Resp B/P (MAP) Pulse Ox O2 Delivery O2 Flow Rate FiO2 07/23/19 15:13 98.1 97 16 178/128 (145) 97 Room Air General Appearance: alert, thin, other - verbal, eyes open, moves all extremities and follow commands, Chronically Ill Head: other - left supraorbital soft tissue swelling ENT: hearing grossly normal Neck: limited range of motion Respiratory: chest non-tender, lungs clear Cardiovascular #1: normal peripheral pulses, regular rate, rhythm Gastrointestinal: normal inspection, non tender, soft Neurologic: alert, other - slight motor weakness, slurred speech Medical Decision Making Diagnostic Impression: Primary Impression: HIV (human immunodeficiency virus infection) Qualified Codes: B20 - Human immunodeficiency virus [HIV] disease Additional Impressions: Facial contusion Qualified Codes: S00.83XA - Contusion of other part of head, initial encounter Fall Qualified Codes: W19.XXXA - Unspecified fall, initial encounter ER Course Patient presented for increased facial pain and frequent falls. Differential diagnosis include was not limited to encephalopathy, intracranial hemorrhage, fracture, electrolyte abnormality, among others. Because of complexity of patient's case laboratory tests and imaging studies were ordered. Patient was noted to be somewhat confused. Patient had been noted to be slurring speech with very unsteady gait. CT imaging was ordered due to patient's confusion and altered mental status and recent head trauma. Patient was given Ativan to facilitate CT imaging. Patient was noted to be continued confused in the emergency department. He was also given Haldol due to agitation. Patient's laboratory testing was notable for elevated blood alcohol level. Patient was noted to have some prior history of HIV. Patient's mental status did not appear to be improving. Patient was admitted to hospital for further evaluation and management. Dr. Shoaib Vaguhn was contacted for inpatient management due to panel physician Laboratory Tests Test 07/23/19 15:50 White Blood Count 4.7 K/UL (4.8-10.8) L Red Blood Count 5.08 M/UL (4.70-6.10) Hemoglobin 16.8 G/DL (14.2-18.0) Hematocrit 49.3 % (42.0-52.0) Mean Corpuscular Volume 97 FL (80-99) Mean Corpuscular Hemoglobin 33.1 PG (27.0-31.0) H Mean Corpuscular Hemoglobin Concent 34.1 G/DL (32.0-36.0) Red Cell Distribution Width 11.0 % (11.6-14.8) L Platelet Count 114 K/UL (150-450) L Mean Platelet Volume 7.8 FL (6.5-10.1) Neutrophils (%) (Auto) 51.1 % (45.0-75.0) Lymphocytes (%) (Auto) 33.5 % (20.0-45.0) Monocytes (%) (Auto) 8.6 % (1.0-10.0) Eosinophils (%) (Auto) 3.1 % (0.0-3.0) H Basophils (%) (Auto) 3.7 % (0.0-2.0) H Prothrombin Time 14.1 SEC (9.30-11.50) H Prothrombin Time INR 1.3 (0.9-1.1) H PTT 35 SEC (23-33) H Sodium Level 138 MMOL/L (136-145) Potassium Level 3.6 MMOL/L (3.5-5.1) Chloride Level 104 MMOL/L (98-107) Carbon Dioxide Level 26 MMOL/L (21-32) Anion Gap 8 mmol/L (5-15) Blood Urea Nitrogen 8 mg/dL (7-18) Creatinine 1.1 MG/DL (0.55-1.30) Estimate Glomerular Filtration Rate > 60 mL/min (>60) Glucose Level 99 MG/DL (74-106) Calcium Level 8.4 MG/DL (8.5-10.1) L Total Bilirubin 1.0 MG/DL (0.2-1.0) Aspartate Amino Transferase (AST) 94 U/L (15-37) H Alanine Aminotransferase (ALT) 61 U/L (12-78) Alkaline Phosphatase 102 U/L (46-116) Troponin I 0.000 ng/mL (0.000-0.056) Total Protein 8.3 G/DL (6.4-8.2) H Albumin 2.6 G/DL (3.4-5.0) L Globulin 5.7 g/dL Albumin/Globulin Ratio 0.5 (1.0-2.7) L Thyroid Stimulating Hormone (TSH) 1.937 uiU/mL (0.358-3.740) Serum Alcohol 218 mg/dL Phosphorus Level Magnesium Level EKG Diagnostic Results Rhythm: other - paced 60 ST Segments: other - paced rhythm, digoxin effect Last Vital Signs Date Time Temp Pulse Resp B/P (MAP) Pulse Ox O2 Delivery O2 Flow Rate FiO2 07/23/19 15:13 98.1 97 16 178/128 (145) 97 Room Air Status: improved Disposition: ADMITTED INPATIENT Condition: Stable Zhen Raymond MD Jul 23, 2019 15:33
--- NOTE | 2019-07-23 15:36 | NUR ---
ED Nurse Note: PT BROUGHT IN FROM STREET BY RA68 S/P FALL. PER EMS, PT WAS DRINKING PRIOR TO ARRIVAL ON SCENE. PT PRESENTS WITH LACERATION ON LEFT EYEBROW. ERMD AT BEDSIDE. PT PLACED IN HOSPITAL GOWN, FLOOR REFINISHER DISPLAYS NSR, CONT PULSE OX SATURATING 100% ON ROOM AIR. WILL CONTINUE TO MONITOR.
[2019-07-23 15:44] VITALS: BP 159/83
--- NOTE | 2019-07-23 15:54 | NUR ---
ED Nurse Note: Blood collected and sent down to lab.
--- NOTE | 2019-07-23 15:59 | NUR ---
ED Nurse Note: Pt was taken down to CT, in stable condition.
[2019-07-23 16:12] LABS: BASOPHILS % (AUTO) 3.7 % (0.0-2.0); EOSINOPHILS % (AUTO) 3.1 % (0.0-3.0); HEMATOCRIT 49.3 % (42.0-52.0); HEMOGLOBIN 16.8 G/DL (14.2-18.0); INR 1.3 (0.9-1.1); LYMPHOCYTES % (AUTO) 33.5 % (20.0-45.0); MEAN CORPUSCULAR VOLUME 97 FL (80-99); MONOCYTES % (AUTO) 8.6 % (1.0-10.0); NEUTROPHILS % (AUTO) 51.1 % (45.0-75.0); PLATELET COUNT 114 K/UL (150-450); RED BLOOD COUNT 5.08 M/UL (4.70-6.10); WHITE BLOOD COUNT 4.7 K/UL (4.8-10.8)
--- NOTE | 2019-07-23 16:13 | NUR ---
ED Nurse Note: pt back from CT in stable condition. placed back on space planner and cont. pulse ox
[2019-07-23 16:18] LABS: ANION GAP 8 mmol/L (5-15); BLOOD UREA NITROGEN 8 mg/dL (7-18); CALCIUM 8.4 MG/DL (8.5-10.1); CARBON DIOXIDE 26 MMOL/L (21-32); CHLORIDE 104 MMOL/L (98-107); CREATININE 1.1 MG/DL (0.55-1.30); POTASSIUM 3.6 MMOL/L (3.5-5.1); SODIUM 138 MMOL/L (136-145)
--- NOTE | 2019-07-23 16:27 | NUR ---
ED Nurse Note: Pt was taken back down for repeat CT.
[2019-07-23 16:32] LABS: ALANINE AMINOTRANSFERASE 61 U/L (12-78); ALBUMIN 2.6 G/DL (3.4-5.0); ALBUMIN/GLOBULIN RATIO 0.5 (1.0-2.7); ALKALINE PHOSPHATASE 102 U/L (46-116); ASPARTATE AMINO TRANSFERASE 94 U/L (15-37)
[2019-07-23] MEDS ORDERED: LORazepam Inj 2mg/ml 1ml ONE (16:37)
[2019-07-23] MEDS ORDERED: LORazepam Inj 2mg/ml 1ml IV ONE (16:45)
--- NOTE | 2019-07-23 17:31 | Diagnostic Imaging Report ---
Indications: Altered mental status Technique: Spiral acquisitions obtained through the brain. Angled axial and coronal 5 x 5 mm slices were reconstructed. Total dose length product 1652 mGycm. CTDI vol(s) 68 mGy. Dose reduction achieved using automated exposure control Comparison: 06/23/2019 Findings: There are old bilateral basal ganglia lacunar infarcts. That in the right iraheta radiata is new since the previous study. The others are evident previously. There is age-related enlargement of the ventricles and extra axial CSF spaces. There is periventricular deep white matter low-attenuation, consistent with chronic microvascular ischemic change. No acute intracranial hemorrhage or edema, mass effect, nor midline shift. There is a small left supraorbital scalp hematoma. The calvarium is intact. There is minimal mastoid disease on the left. Impression: Chronic and age-related changes Old lacunar infarcts, one of which has occurred since prior exam of 06/23/2019 Negative for acute intracranial bleed or mass effect The CT scanner at [facility] is accredited by the [employer] and the scans are performed using protocols designed to limit radiation exposure to as low as reasonably achievable to attain images of sufficient resolution adequate for diagnostic evaluation.
--- NOTE | 2019-07-23 17:42 | NUR ---
ED Nurse Note: Awaiting for bed on MedSurg at this time. Patient restless in bed; will continue to monitor.
[2019-07-23 17:46] VITALS: BP 164/111
--- NOTE | 2019-07-23 19:12 | NUR ---
HAND-OFF: Report given to LILLIE Lambert.
--- NOTE | 2019-07-23 19:15 | NUR ---
ED Nurse Note: Recieved pt lying in bed prone position, non-cooperative and very restless, pt is awake and alert but inappropriate, pt speaking and yelling profanity to staff and threatning to hit everyone, pt is on monitoring which has to be re-applied frequently, MD informed, will resume care as ordered and continue to closely monitor while waiting for pt disposition.
[2019-07-23 19:30] VITALS: BP 159/102
[2019-07-23] MEDS ORDERED: Haloperidol 5mg/ml Inj IM ONE (19:45)
[2019-07-23] MEDS ORDERED: LORazepam Inj 2mg/ml 1ml IV PRN (20:30)
--- NOTE | 2019-07-23 20:30 | NUR ---
ED Nurse Note: Pt continues to be very restless and agitated, kicking and threatning that he wants to leave, pt is not safe to leave, pts behavior is inappropriate and pt is lethargic and drowsy like, when asked if pain pt uses profanity for answer, non-cooperative and constantly attempting to jump over side rails and get out of bed, pt also constantly pulling off equipment, pt requires constant monitoring, MD aware, pt medicated with haldol, not-effective.
[2019-07-23 21:15] VITALS: BP 148/96
--- NOTE | 2019-07-23 21:30 | NUR ---
ED Nurse Note: Meds now effective, pt sleeping quietly in bed, agitated and restlessness is less, pt on cardiac monitoring, v/s stable, iv site patent and wrapped with kerlix, pt does continue to have intermittent periods of kicking, yelling and shouthing and threatning staff but is more calm, aware, will continue to closely monitor and prepare for hospital admission.
--- NOTE | 2019-07-23 22:00 | NUR ---
ED Nurse Note: Pt has room for admission, report called to floor nurse, pt in bed more awake and alert but remains inappropriate, not thrreatning staff any more but still restless and attempting to get out of bed over rails, pt denies pain, no sob or labored breathing, pt is too altered to complete med rec, belongings list complet, pt taken to floor unit via gurney with er-tech.
[2019-07-23] MEDS: Thiamine 100mg tab ORAL SCH (22:33)
[2019-07-23 22:39] VITALS: BP 166/96
[2019-07-24] VITALS: BP 158/82
[2019-07-24 04:00] VITALS: BP 160/94
[2019-07-24 06:32] LABS: ANION GAP 7 mmol/L (5-15); BLOOD UREA NITROGEN 6 mg/dL (7-18); CALCIUM 8.1 MG/DL (8.5-10.1); CARBON DIOXIDE 28 MMOL/L (21-32); CHLORIDE 107 MMOL/L (98-107); CREATININE 1.1 MG/DL (0.55-1.30); SODIUM 142 MMOL/L (136-145)
[2019-07-24 06:36] LABS: PHOSPHORUS 3.5 MG/DL (2.5-4.9)
--- NOTE | 2019-07-24 07:20 | NUR ---
HAND-OFF: Report given to Sona Jarrett RN.
--- NOTE | 2019-07-24 07:51 | NUR ---
NURSE NOTES: received report from LILLIE Solitario. patient in bed, alert. oriented. verbally responsive. no respiratory distress noted. no c/o pain. IV on LFA 20 running fluid. bed in the lowest position. call light within reach, will continue to provide plan of care.
[2019-07-24 08:00] VITALS: BP 143/93
--- NOTE | 2019-07-24 08:30 | History and Physical Report ---
DATE OF ADMISSION: 07/23/2019 REASON FOR ADMISSION: 1. Dehydration. 2. Alcohol intoxication. HISTORY OF PRESENT ILLNESS: The patient is a 68-year-old gentleman brought in by EMS after having multiple falls, noted to have a prior history of HIV, unsteady gait. The patient was heavily intoxicated, had hit the side of his head. At that time, the patient was unsteady on his feet due to the high alcohol level. ALLERGIES: No known drug allergies. PAST MEDICAL HISTORY: 1. Alcohol dependence. 2. Hypertension. 3. COPD. 4. HIV. PAST SURGICAL HISTORY: Noncontributory. FAMILY HISTORY: Positive for hypertension and diabetes. REVIEW OF SYSTEMS: NEUROLOGIC: The patient is unsteady on his feet, intoxicated. CARDIOVASCULAR: No current chest pain or palpitations. PULMONARY: No difficulty breathing, productive cough, or sputum. GASTROINTESTINAL/GENITOURINARY: No nausea, vomiting, or diarrhea. ENDOCRINOLOGY: No night sweats, fevers, or chills. MUSCULOSKELETAL: The patient is feeling weak, tired, and fatigued. LABORATORY DATA: Laboratories dated July 24, 2019, sodium 142, potassium 4, creatinine 1.1, magnesium 1.5, and phosphorus 3.5. Hemoglobin 16.8, white cell count 4.7, and platelet count 114,000. PHYSICAL EXAMINATION: VITAL SIGNS: Blood pressure 160/94, respiratory rate 18, pulse 82, temperature 97.4, and 99% oxygen saturation on room air. GENERAL: The patient is awake, alert, and not in distress. HEENT: Extraocular muscles intact. No lymphadenopathy noted. CARDIOVASCULAR: S1, S2. No rubs or gallops. PULMONARY: Clear to auscultation bilaterally. No rales, rhonchi, or wheezes. ABDOMINAL: Nondistended and nontender. EXTREMITIES: No edema. ASSESSMENT AND PLAN: 1. Alcohol intoxication. The patient is much better this morning. We will continue hydration with thiamine and folate. Likely to be discharged tomorrow. The patient lives at home with his . 2. Hypertension. We will continue to adjust medications. I have started Norvasc. 3. HIV. The patient will need outpatient follow-up. 4. DVT prophylaxis with SCDs. 5. Disposition. At this time, the patient is requesting some assistance to help him at home with medications and mobility. He does say his is there and can assist for over the first 2 to 3 weeks or up to a month. Shoaib Vaughn MD DR: VON JOB#: [id number] CC:
[2019-07-24] MEDS: Lisinopril 10mg tab ORAL SCH ×2 (08:39→17:22)
[2019-07-24] MEDS: Thiamine 100mg tab ORAL SCH (08:39)
[2019-07-24 12:00] VITALS: BP 131/82
--- NOTE | 2019-07-24 12:03 | NUR ---
Social Service Note SW met with patient to assess for substance abuse dependency. Patient was alert, oriented and verbally responsive during conversation. Patient admits to drinking on a regular basis but didn't want to disclose the length of time he has been dependent on alcohol. Patient states he has not sought out treatment and was not receptive to community resources for substance abuse treatment SW presented. Patient unable to provide PCP information. Patient is non-compliant with HIV care. Patient states he doesn't require resources for HIV follow up. Patient provided the address of [address] [place] [address] (which is listed on face sheet) as the address he will return to upon discharge. Patient states he resides at this address with a friend Joan Robledo [phone]. Patient states he is able to get to the address via the bus. Patient's cane is at the bedside. Resources placed in chart to be provided to patient upon discharge. PT eval and treat pending. Patient denies mental health disorders. Will continue to monitor and assist as needed.
--- NOTE | 2019-07-24 12:10 | NUR ---
RD ASSESSMENT & RECOMMENDATIONS SEE CARE ACTIVITY FOR COMPLETE ASSESSMENT DAILY ESTIMATED NEEDS: Needs based on cardiac/ 73kg 25-30 kcals/kg 2519-5601 total kcals 1-1.3 g protein/kg 73-95 g total protein 25-30 mL/kg 4564-4118 total fluid mLs NUTRITION DIAGNOSIS: Altered nutrition related lab values R/T clinical condition, ETOH abuse as evidenced by low mag (1.5), serum alcohol of 218. CURRENT DIET:LOW NA PO DIET RECOMMENDATIONS: LOW NA/ texture as tolerated ADDITIONAL RECOMMENDATIONS: * Standing wt as able for accurate CBW * Continue folate + B1 -> Add MVI x 1 * Monitor lytes, replete as needed (mag 1.5) * Add Ensure Enlive BID in b/w meals Addendum: 07/24/19 at [address] ADDITIONAL NUTRITION DX: -> Increased kcal/prot needs R/T catabolic dx as evidenced by HIV +
[2019-07-24 16:00] VITALS: BP 115/55
--- NOTE | 2019-07-24 16:02 | NUR ---
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 98.1 HR 97 RR 16 B/P 178/121 WBC 4.7 AST [address]= NEGATIVE IS: HL INSERTED ADMITTED TO MED/SURG@ 1813 MED/SURG STATUS IS: THIAMINE PO MED/SURG DCP RETURN HOME
--- NOTE | 2019-07-24 18:57 | NUR ---
HAND-OFF: Report given to LILLIE Solitario.
--- NOTE | 2019-07-24 19:48 | NUR ---
NURSE NOTES: received patient comfortably resting in bed,comfortable.
[2019-07-24 20:00] VITALS: BP 129/78
[2019-07-25] VITALS: BP 145/91
[2019-07-25] MEDS ORDERED: Albuterol ud Inhalation HHN PRN (00:30)
[2019-07-25 04:00] VITALS: BP 135/86
--- NOTE | 2019-07-25 07:14 | NUR ---
HAND-OFF: Report given to Sona Jarrett RN.
--- NOTE | 2019-07-25 07:45 | NUR ---
NURSE NOTES: received report from LILLIE Solitario. patient in bed. alert. oriented. verbally responsive. no respiratory distress noted. Had breathing treatment. no c/o pain at this time. no tremor. no change of Loc, IV on LFA running fluid. urinal at the bedside. bed in the lowest position and locked. call light within reach. alarm on. will continue to provide plan of care.
[2019-07-25 08:00] VITALS: BP 152/100
--- NOTE | 2019-07-25 08:14 | Nephrology Progress Note ---
Assessment/Plan Assessment/Plan: A/P 1) Dehydration- resolved 2) HTN- DC on Norvasc 5 mg bid 3) Alcohol Intoxication- resolved PT eval and treat. Patient requiring minimal 1 month HH to asssist with daily activities and medications supersivion and overall health assistance. Declines HIV f/u Subjective Date patient seen: Jul 25, 2019 Time patient seen: 08:06 ROS Limited/Unobtainable: No Allergies: Coded Allergies: No Known Allergies (Verified , 04/12/08) Subjective Patient feels well. Says he doesnt want to drink alcohol anymore Objective Last 24 Hour Vital Signs Date Time Temp Pulse Resp B/P (MAP) Pulse Ox O2 Delivery O2 Flow Rate FiO2 07/25/19 04:00 99.4 84 18 135/86 (102) 97 07/25/19 01:11 77 16 99 Nasal Cannula 32 07/25/19 01:11 Nasal Cannula 3.0 32 07/25/19 01:11 77 16 99 Nasal Cannula 28 77 18 98 07/25/19 00:00 99.5 88 18 145/91 (109) 97 07/24/19 20:14 Room Air 07/24/19 20:00 99.0 78 18 129/78 (95) 99 07/24/19 17:22 115/55 07/24/19 16:00 98.5 75 19 115/55 (75) 96 07/24/19 12:00 98.1 78 16 131/82 (98) 100 07/24/19 09:00 Room Air 07/24/19 08:39 143/93 07/24/19 08:39 107 143/93 Intake and Output 07/24/19 07/25/19 18:59 06:59 Intake Total 750 ml 900 ml Balance 750 ml 900 ml IV Total 750 ml 900 ml # Voids 2 2 # Bowel Movements 2 Height (Feet): 6 Height (Inches): 2.00 Weight (Pounds): 123 General Appearance: no apparent distress EENT: normal ENT inspection Neck: normal alignment, supple Cardiovascular: normal rate, regular rhythm Respiratory/Chest: lungs clear Abdomen: non tender, soft Edema: no edema noted Arm (L), no edema noted Arm (R), no edema noted Leg (L), no edema noted Leg (R), no edema noted Pedal (L), no edema noted Pedal (R), no edema noted Generalized Shoaib Vaughn MD Jul 25, 2019 08:14
--- NOTE | 2019-07-25 08:16 | Discharge Instructions ---
Discharge Instructions Discharge Instructions Services at Discharge: day care Diet: 2 GM sodium (low sodium) Follow Up Orders Follow up PCP 1 week For Congestive Heart Failure Reminder Report to your physician any weight gain of 5 pounds or more in one week. Shoaib Vaughn MD Jul 25, 2019 08:16
[2019-07-25] MEDS: Lisinopril 10mg tab ORAL SCH (08:24)
[2019-07-25 08:25] VITALS: BP 152/100
[2019-07-25] MEDS: Thiamine 100mg tab ORAL SCH (08:25)
--- NOTE | 2019-07-25 08:50 | NUR ---
NURSE NOTES: RN called aldo Quintana will pick the patient after 1300.
--- NOTE | 2019-07-25 09:00 | NUR ---
NURSE NOTES: called to PT asking PT note for patient discharge. PT will see the patient in an hour.
--- NOTE | 2019-07-25 11:02 | NUR ---
NURSE NOTES: Patient seen by PT. patient is not steady for walking. PT recommended either short term rehab or home health PT with walker. notified DR.De foote and home health is already set up for the patient.
--- NOTE | 2019-07-25 11:24 | NUR ---
NURSE NOTES: patient discharged to home with friend with fair condition. no respiratory distress noted. no pain at this time. removed IV and ID band. RN provided dc packet explained discharge summary. checked and counted belongings with patient and obtained sign. RN gave new prescription by Dr. Vaughn to the patient. escorted by RYAN baker to the parking lot.
--- NOTE | 2019-07-25 16:31 | NUR ---
P.T NOTE: LATE ENTRY 1030 P.T EVALUATION COMPLETED. PLEASE REFER TO P.T EVALUATION FOR CURRENT FUNCTIONAL STATUS. PATIENT IS ALERT, ORIENTED X 4 , PLEASANT AND COOPERATIVE. PATIENT DENIED C/O PAIN. PATIENT PRESENTED GENERALIZED WEAKNESS AFFECTING HIS BALANCE AND OVERALL FUNCTIONAL MOBILITY PERFORMANCE AND SAFETY. PATIENT CURRENTLY IS INDEPENDENT WITH BED MOBILITY, CGA X 1 FOR TRANSFERS AND GAIT/AMBULATION ACTIVITIES USING HIS CANE. DISCUSSED WITH PATIENT RE: HIS CURRENT CONDITION AND SAFETY ISSUE IF PATIENT GOES HOME. P.T STRONGLY RECOMMENDED SNF FOR SHORT TERM REHAB VS HOME WITH P.T FOLLOW UP HOWEVER PATIENT REFUSED TO GO TO SNF AND CHOSE THE LATTER INSTEAD. PATIENT STATED HIS FRIEND WILL BE STAYING AND HELPING HIM AT HOME. RN NOTIFIED. MARLOW NOTIFIED. RECOMMEND HOME P.T AND FWW IF PATIENT WILL BE DC'D TO HOME.
--- NOTE | 2019-07-26 10:12 | Discharge Summary ---
Discharge Summary Discharge Summary _ DATE OF ADMISSION: 07/23/2019 DATE OF DISCHARGE: 07/25/2019 DISCHARGED BY: Dr. Vaughn REASON FOR ADMISSION: 68 years old male with past medical history of hypertension, COPD, HIV, alcohol dependency, was brought by EMS after multiply falls. Patient was heavily intoxicated and hit his head. Upon evaluation in emergency department blood pressure was elevated 178/128. Laboratory work-up revealed no leukocytosis , stable hemoglobin and hematocrit . Stable electrolytes and renal parameters. Glucose 99. AST 94 , ALT 61. Troponin negative. Serum alcohol level 218 . Upon evaluation patient was confused , had was very unsteady gait , slurred speech and was agitated. CT of the head revealed chronic and age-related changes. Old lacunar infarcts. No acute intracranial bleeding or mass-effect. Patient subsequently admitted for inpatient management. HOSPITAL COURSE: Patient admitted to medical surgical floor and started on IV hydration with thiamine and folate. Ativan was on board as needed. Blood pressure regimen was optimized and managed with calcium channel dallin and BRANDI inhibitor. Patient required outpatient follow-up for HIV, but patient declined it. DVT prophylaxis with SCD provided. Fall precautions maintained. Supplemental oxygen and nebulizing treatment with Albuterol were on board as needed. No signs of respiratory distress. Pulse oximetry was stable on room air. Patient was working with physical therapy. Patient will require minimal 1 month of home health to assist with daily activities and medication supervision as well as overall health assistance. combination worker met with the patient to assess for substance abuse dependency. Patient admitted to drinking on a regular basis. Patient stated that he did not require any resources for HIV follow-up. Patient was not receptive to community resources for substance abuse treatment as well, that the neonatal social worker presented. Resources were placed in the chart and provided to patient upon discharge. Patient denied any mental health disorders. Patient clinically stabilized and was ready for discharge home with home health services. FINAL DIAGNOSES: Alcohol intoxication Hypertension HIV Dehydration DISCHARGE MEDICATIONS: See Medication Reconciliation list. DISCHARGE INSTRUCTIONS: Patient was discharged home with home health services. Follow up with primary care provider in one week. I have been assigned to dictate discharge summary for this account. I was not involved in the patient's management. Shayla Werner NP Jul 26, 2019 10:12
== END 2019-07-25 11:23 | disposition home or self-care (01) | DRG 641 ==
LOC: EDBD 15:23 → EMR 15:41 → 4E 16:08 → EDBEDREQ 20:22 → 4E 22:29
DX: E86.0 Dehydration (principal); F10.229 Alcohol dependence with intoxication, unspecified; I10 Essential (primary) hypertension; J44.9 Chronic obstructive pulmonary disease, unspecified; S00.83XA Contusion of other part of head, initial encounter; W19.XXXA Unspecified fall, initial encounter; R26.81 Unsteadiness on feet; Z86.73 Personal history of transient ischemic attack (TIA), and cerebral infarction without residual deficits
CPT/HCPCS: 36415; 70450; 80048; 80053; 80329; 83735; 84100; 84443; 84484; 85025; 85610; 85730; 87081; 94640; 94664; 96372; 96374; 99285

== ENCOUNTER 2019-12-16 16:15 | Inpatient (IN) | payer MEDICARE, OTHER ==
[~2019-12-16] VITALS: Ht 185.4 cm; Wt 49.9 kg
[2019-12-16 16:35] VITALS: BP 127/84
--- NOTE | 2019-12-16 16:41 | NUR ---
ED Nurse Note: pt walked in and got assisted by WC due to weakness. per pt, he usually can ambulate with assist but he got weaken lately. pt aao x3-4 and follows commands. skin very dry but no wound noted. hernia noted on abdoman. no cardiac or pulmonary distress noted at this moment. caregiver Elsie [phone] brought the pt and left. pt is in gown and on patient monitor.
--- NOTE | 2019-12-16 16:45 | NUR ---
ED Nurse Note: ERMD at bedside.
--- NOTE | 2019-12-16 16:58 | NUR ---
ED Nurse Note: x-ray at bedside.
[2019-12-16] MEDS ORDERED: HYDROCHLOROTH12.5 MG ORAL (16:59)
[2019-12-16] MEDS ORDERED: TIVICAY50 MG ORAL (16:59)
[2019-12-16] MEDS ORDERED: DILTIAZEM 24HR180 M3 ORAL (16:59)
[2019-12-16] MEDS ORDERED: NORVIR100 M2 ORAL (16:59)
[2019-12-16] MEDS ORDERED: PREZISTA600 MG ORAL (16:59)
[2019-12-16] MEDS ORDERED: Solu-MEDROL 125mg Inj IVP ONE (17:00)
[2019-12-16] MEDS ORDERED: Albuterol ud Inhalation HHN ONE ×2 (17:00→20:30)
[2019-12-16] MEDS ORDERED: Ipratropium 0.02% Inh Soln 2.5ml UD HHN ONE (17:00)
--- NOTE | 2019-12-16 17:19 | Emergency Room Report ---
History of Present Illness General Chief Complaint: Generalized Weakness Source: Patient Present Illness HPI Patient presents with lack of appetite and cough for 4 to 5 days. He smokes. He also uses heroin. He denies any hemoptysis at this time. He is felt chills but no documented fever. Patient has a history of COPD. Patient has HIV and hepatitis C. He says he is stable on his antivirals. Patient skin pops one half bag a day. Last time he used was 2 days ago. He denies using other drugs. (See tox screen) No sore throat, chest pain, palpitations, nausea, vomiting, diarrhea, dysuria, abdominal pain, joint pain, rashes, depression, anxiety, visual changes, dizziness, headache. Patient admitted July 2019 with these discharge diagnoses: Alcohol intoxication Hypertension HIV Dehydration Allergies: Coded Allergies: No Known Allergies (Verified , 04/12/08) Patient History Social History: Reports: smoking, alcohol use, drug use Social History Narrative Lives with his girlfriend in [facility] in [place] Reviewed Nursing Documentation: PMH: Agreed; PSxH: Agreed Nursing Documentation-PMH Past Medical History: No History, Except For Hx Hypertension: Yes Hx Asthma: Yes Hx COPD: Yes - HIV Hx Cancer: No Hx Gastrointestinal Problems: No Hx Neurological Problems: No Review of Systems All Other Systems: negative except mentioned in HPI Physical Exam Vital Signs Date Time Temp Pulse Resp B/P (MAP) Pulse Ox O2 Delivery O2 Flow Rate FiO2 12/16/19 16:21 98.8 84 20 127/84 (98) 85 Room Air Sp02 EP Interpretation: reviewed, abnormal - Interpreted as low by me General Appearance: no apparent distress, GCS 15, non-toxic, thin, Chronically Ill Head: normocephalic Eyes: bilateral eye normal inspection, bilateral eye PERRL, bilateral eye EOMI ENT: moist mucus membranes Neck: supple Respiratory: decreased breath sounds, crackles, wheezing, expiration Cardiovascular #1: regular rate, rhythm, no edema Cardiovascular #2: 2+ radial (R) Gastrointestinal: normal inspection, normal bowel sounds, non tender, no mass, non-distended, scaphoid Genitourinary: no CVA tenderness Musculoskeletal: back normal, normal range of motion, no calf tenderness, gait/ station normal Neurologic: alert, motor strength/tone normal, ultimate hoops scoreboard operator III-XII nml as tested, DTRs symmetric, oriented x3, sensory intact, cerebellar normal, speech normal Psychiatric: mood/affect normal Skin: warm/dry, other - Skin popping lesions arms without evidence of infection Medical Decision Making Diagnostic Impression: Primary Impression: Right lower lobe pulmonary infiltrate Additional Impressions: COPD exacerbation Substance abuse Renal insufficiency Elevated lactic acid level ER Course Patient presents with dyspnea lack of appetite for several days. Differential includes acute myocardial infarction, pneumonia, COPD exacerbation lesion, gastroenteritis or enteritis amongst others. Evaluation with EKG, chest x-ray and labs. Patient treated with Solu-Medrol and breathing treatments with IV hydration. EKG without injury. Chest x-ray with COPD and right lower lobe infiltrate. Low white count. CMP with renal insufficiency. Mild pyuria. Tox screen positive for cocaine and opiates. X-ray results back and antibiotics begun for right lower lobe infiltrate at 1720 1800 called with lactic acid 2.5. 30 ml/kg bolus ordered. Antibiotics already ordered. Patient blood pressure maintaining. Not tachycardic and mentating well. Good capillary fill. Sepsis reevaluation. Wheezing. Repeat tx. O2 sat 89%. Oxygen ordered. 2023 Reflex lactic acid more elevated. This was performed before bolus administered. Improved after breathing treatment. Patient admitted. Laboratory Tests Test 12/16/19 17:10 12/16/19 17:40 12/16/19 18:56 12/16/19 19:35 Sodium Level 134 MMOL/L (136-145) L Potassium Level 5.1 MMOL/L (3.5-5.1) Chloride Level 98 MMOL/L (98-107) Carbon Dioxide Level 24 MMOL/L (21-32) Anion Gap 12 mmol/L (5-15) Blood Urea Nitrogen 24 mg/dL (7-18) H Creatinine 1.4 MG/DL (0.55-1.30) H Estimate Glomerular Filtration Rate > 60 mL/min (>60) Glucose Level 147 MG/DL (74-106) H Lactic Acid Level 2.50 mmol/L (0.4-2.0) H 3.40 mmol/L (0.66-2.22) H Calcium Level 9.2 MG/DL (8.5-10.1) Magnesium Level 1.5 MG/DL (1.8-2.4) L Total Bilirubin 0.9 MG/DL (0.2-1.0) Aspartate Amino Transferase (AST) 79 U/L (15-37) H Alanine Aminotransferase (ALT) 46 U/L (12-78) Alkaline Phosphatase 114 U/L (46-116) Total Creatine Kinase 118 U/L (26-308) Pro-B-Type Natriuretic Peptide 522 pg/mL (0-125) H Total Protein 8.6 G/DL (6.4-8.2) H Albumin 2.4 G/DL (3.4-5.0) L Globulin 6.2 g/dL Albumin/Globulin Ratio 0.4 (1.0-2.7) L Lipase 311 U/L (73-393) Serum Alcohol < 3 mg/dL White Blood Count 3.9 K/UL (4.8-10.8) L Red Blood Count 4.49 M/UL (4.70-6.10) L Hemoglobin 14.2 G/DL (14.2-18.0) Hematocrit 42.7 % (42.0-52.0) Mean Corpuscular Volume 95 FL (80-99) Mean Corpuscular Hemoglobin 31.7 PG (27.0-31.0) H Mean Corpuscular Hemoglobin Concent 33.3 G/DL (32.0-36.0) Red Cell Distribution Width 13.2 % (11.6-14.8) Platelet Count 193 K/UL (150-450) Mean Platelet Volume 6.4 FL (6.5-10.1) L Neutrophils (%) (Auto) 75.3 % (45.0-75.0) H Lymphocytes (%) (Auto) 8.3 % (20.0-45.0) L Monocytes (%) (Auto) 11.8 % (1.0-10.0) H Eosinophils (%) (Auto) 0.3 % (0.0-3.0) Basophils (%) (Auto) 4.2 % (0.0-2.0) H Prothrombin Time 11.2 SEC (9.30-11.50) Prothrombin Time INR 1.1 (0.9-1.1) Activated Partial Thromboplast Time 29 SEC (23-33) Urine Color Pale yellow Urine Appearance Slightly cloudy Urine pH 6.5 (4.5-8.0) Urine Specific [place] 1.010 (1.005-1.035) Urine Protein 2+ (NEGATIVE) H Urine Glucose (UA) 2+ (NEGATIVE) H Urine Ketones Negative (NEGATIVE) Urine Blood 2+ (NEGATIVE) H Urine Nitrite Negative (NEGATIVE) Urine Bilirubin Negative (NEGATIVE) Urine Urobilinogen Normal MG/DL (0.0-1.0) Urine Leukocyte Esterase 3+ (NEGATIVE) H Urine RBC 2-4 /HPF (0 - 0) H Urine WBC 10-15 /HPF (0 - 0) H Urine Squamous Epithelial Cells Few /LPF (NONE/OCC) Urine Bacteria Few /HPF (NONE) Urine Yeast Few /HPF (NONE) H Urine Opiates Screen Positive (NEGATIVE) H Urine Barbiturates Screen Negative (NEGATIVE) Phencyclidine (PCP) Screen Negative (NEGATIVE) Urine Amphetamines Screen Negative (NEGATIVE) Urine Benzodiazepines Screen Negative (NEGATIVE) Urine Cocaine Screen Positive (NEGATIVE) H Urine Marijuana (THC) Screen Negative (NEGATIVE) EKG Diagnostic Results Rate: normal Rhythm: NSR ST Segments: no acute changes Rhythm Strip Diag. Results EP Interpretation: yes Rhythm: NSR, no PVC's, no ectopy Chest X-Ray Diagnostic Results Chest X-Ray Diagnostic Results : Chest X-Ray Ordered: Yes # of Views/Limited/Complete: 1 View Indication: Other EP Interpretation: Yes Interpretation: no effusion, no pneumothorax, other - COPD with right lower lobe infiltrate Impression: Other Electronically Signed by: Electronically signed by Anthony Kerns MD Last Vital Signs Date Time Temp Pulse Resp B/P (MAP) Pulse Ox O2 Delivery O2 Flow Rate FiO2 12/16/19 23:24 82 18 99 Nasal Cannula 4.0 36 80 18 98 12/16/19 22:20 98.8 152/88 (109) Status: improved Disposition: ADMITTED INPATIENT Condition: Serious Anthony Kerns MD Dec 16, 2019 17:19
--- NOTE | 2019-12-16 17:20 | NUR ---
ED Nurse Note: pt reminded on urine sample. pt unable to urinate at this moment.
[2019-12-16] MEDS ORDERED: Vancomycin 1 GM in NS 275 ML IVPB ONE (17:30)
[2019-12-16] MEDS ORDERED: Piperacillin/Tazobactam 3.375 GM in NS 110 ML IVPB ONE (17:30)
[2019-12-16 17:41] LABS: ANION GAP 12 mmol/L (5-15); BLOOD UREA NITROGEN 24 mg/dL (7-18); CALCIUM 9.2 MG/DL (8.5-10.1); CARBON DIOXIDE 24 MMOL/L (21-32); CHLORIDE 98 MMOL/L (98-107); CREATININE 1.4 MG/DL (0.55-1.30); POTASSIUM 5.1 MMOL/L (3.5-5.1); SODIUM 134 MMOL/L (136-145)
[2019-12-16 17:45] LABS: ALANINE AMINOTRANSFERASE 46 U/L (12-78); ALBUMIN 2.4 G/DL (3.4-5.0); ALBUMIN/GLOBULIN RATIO 0.4 (1.0-2.7); ALKALINE PHOSPHATASE 114 U/L (46-116); ASPARTATE AMINO TRANSFERASE 79 U/L (15-37); BILIRUBIN,TOTAL 0.9 MG/DL (0.2-1.0); CREATINE KINASE 118 U/L (26-308)
[2019-12-16 17:54] LABS: BASOPHILS % (AUTO) 4.2 % (0.0-2.0); EOSINOPHILS % (AUTO) 0.3 % (0.0-3.0); HEMATOCRIT 42.7 % (42.0-52.0); HEMOGLOBIN 14.2 G/DL (14.2-18.0); LYMPHOCYTES % (AUTO) 8.3 % (20.0-45.0); MEAN CORPUSCULAR VOLUME 95 FL (80-99); MONOCYTES % (AUTO) 11.8 % (1.0-10.0); NEUTROPHILS % (AUTO) 75.3 % (45.0-75.0); PLATELET COUNT 193 K/UL (150-450); RED BLOOD COUNT 4.49 M/UL (4.70-6.10); RED CELL DISTRIBUTION WIDTH 13.2 % (11.6-14.8); WHITE BLOOD COUNT 3.9 K/UL (4.8-10.8)
[2019-12-16 18:04] LABS: INR 1.1 (0.9-1.1)
--- NOTE | 2019-12-16 18:27 | NUR ---
ED Nurse Note: per ERMD pt is ok to eat and drink.
[2019-12-16] MEDS ORDERED: Milk of Magnesia 30ml Ud ORAL PRN (19:00)
--- NOTE | 2019-12-16 19:00 | NUR ---
ED Nurse Note: pt reminded on urine sample. pt refused to try since pt is eating. pt will try after finish eating.
--- NOTE | 2019-12-16 19:15 | NUR ---
HAND-OFF: Report given to LILLIE Gordillo. urine sample and Vacomycin endorsed.
--- NOTE | 2019-12-16 19:35 | NUR ---
ED Nurse Note: urine sent to [facility] Addendum: 12/16/19 at 2049 by KDEARING *to lab
[2019-12-16 20:07] LABS: APPEARANCE,URINE SLIGHTLY CLOUDY; BILIRUBIN, URINE NEGATIVE (NEGATIVE); COLOR,URINE PALE YELLOW; GLUCOSE, URINE (UA) 2+ (NEGATIVE); KETONES,URINE NEGATIVE (NEGATIVE); LEUKOCYTE ESTERASE ,URINE 3+ (NEGATIVE); NITRITE,URINE NEGATIVE (NEGATIVE); PH,URINE 6.5 (4.5-8.0); PROTEIN,URINE 2+ (NEGATIVE); UROBILINOGEN,URINE NORMAL MG/DL (0.0-1.0)
[2019-12-16 20:30] VITALS: BP 135/80
--- NOTE | 2019-12-16 21:08 | NUR ---
ED Nurse Note: Pt receiving Breathing tx
--- NOTE | 2019-12-16 21:17 | NUR ---
TRANSFER TO FLOOR: Patient transferred to as ordered, per Dr Gamez. Report given to LILLIE Wallace. Belongings and medications given to . Family and or S/O informed of transfer.
[2019-12-16 22:20] VITALS: BP 152/88
[2019-12-16] MEDS ORDERED: Albuterol/Ipratropium 3ml neb HHN PRN (22:45)
[2019-12-16] MEDS ORDERED: traMADol 50mg tab ORAL PRN (22:45)
--- NOTE | 2019-12-16 22:53 | NUR ---
NURSE NOTES: Pt transferred from ED with Dx of COPD exacerbation un neha DR. Gamez. Report received from LILLIE Gordillo ED. Pt is having some SOB, RT is called. PT is placed on face mask on 5L. Pt was calm after that, O2 sat 92-94%. Vitals stable otherwise. DR. Martinez called back from Dr. Gamez's exchange and ordered Duo-Neb breathing treatment scheduled and PRN. ordered to continue home Meds. Pt was asked to have someone bring his home HIV Meds so they can be continued here. Pt is awake, alert and ambulatory. Skin intact. Pt had a BM, pt was cleaned. Pt able to void in urinal. IV site on right forearm patent and flushing. Pt oriented to the room. Pt refused to send valuable for safekeeping and signed the belonging sheet. Bed locked low in position,side rails up and call light within reach. Bed alarm on. Pt asked to call for assistance before getting out of bed.
--- NOTE | 2019-12-16 23:10 | NUR ---
Fall RISK INTERVENTION: Based on Conklin Fall Risk Scale, pt is HIGH FALL RISK. All necessary fall precautions have been implemented.Bed alarm on, bed locked low in position,side rails up and call light within reach. Nursing staff, CNAs and charge nurse are made sevilla of patient's fall risk status. Oncoming staff will be endorsed to monitor patient and implement fall precautions. Care plan has been initiated to prevent fall.
[2019-12-16] MEDS: Albuterol/Ipratropium 3ml neb HHN SCH (23:22)
--- NOTE | 2019-12-16 23:53 | NUR ---
NURSE NOTES: Pt is in bed. HOB elevated. ON 2L n/c. RT administered breathing Tx.
[2019-12-17] VITALS (7 sets, daily range): BP systolic 148–170; BP diastolic 66–109
[2019-12-17] MEDS: Albuterol/Ipratropium 3ml neb HHN SCH ×5 (02:03→20:01)
[2019-12-17] MEDS: Hydrocortisone 100mg Inj IV SCH ×3 (06:24→21:20)
[2019-12-17 06:40] LABS: HEMATOCRIT 38.8 % (42.0-52.0); HEMOGLOBIN 13.1 G/DL (14.2-18.0); MEAN CORPUSCULAR VOLUME 95 FL (80-99); PLATELET COUNT 155 K/UL (150-450); RED BLOOD COUNT 4.09 M/UL (4.70-6.10); RED CELL DISTRIBUTION WIDTH 13.2 % (11.6-14.8); WHITE BLOOD COUNT 2.6 K/UL (4.8-10.8)
[2019-12-17 06:51] LABS: ANION GAP 8 mmol/L (5-15); BLOOD UREA NITROGEN 20 mg/dL (7-18); CALCIUM 8.1 MG/DL (8.5-10.1); CARBON DIOXIDE 26 MMOL/L (21-32); CHLORIDE 105 MMOL/L (98-107); CREATININE 1.3 MG/DL (0.55-1.30); POTASSIUM 4.5 MMOL/L (3.5-5.1); SODIUM 139 MMOL/L (136-145)
--- NOTE | 2019-12-17 07:25 | NUR ---
HAND-OFF: Report given to LILLIE Britt.Endorsed to oncoming RN that patient is High fall risk. Fall precautions should be implemented.
--- NOTE | 2019-12-17 07:26 | NUR ---
NURSE NOTES: Report received from Jacques RN. Patient is awake and alert x 4. Patient currently sitting in fowlers position in bed eating breakfast. Patient noted to be on 2 liters via nasal canula. Does not appear to be in respiratory distress at this time. patient as no complaints at this time. Patient noted to have 20 caryl IV in right forearm, patent and in tact. Patient is a new admit to the unit, was recognized as a high fall risk by previous nurse. CRUISE STAFF MEMBER made aware, sign on door, and yellow socks on patient. Will endorse for patient to be moved closer to the nursing station if possible. Will continue to follow plan of care.
[2019-12-17] MEDS: dilTIAZem HCl CD 180mg cap ORAL SCH (08:57)
[2019-12-17] MEDS: hydroCHLOROthiazide 25mg cap ORAL SCH (08:57)
[2019-12-17] MEDS: HydrALAZINE 10mg Tab ORAL PRN ×2 (08:58→12:57)
--- NOTE | 2019-12-17 10:43 | Diagnostic Imaging Report ---
. Indication: Shortness of breath Technique: One view of the chest Comparison: And 22/11/2018 Findings: There is right perihilar patchy interstitial and airspace disease. Bullous changes and hyperinflation are seen in the upper lobes bilaterally, right greater than left. Normal heart size. Impression: Right perihilar infiltrates, likely pneumonia Evidence of bullous COPD
--- NOTE | 2019-12-17 11:00 | NUR ---
NURSE NOTES: Patient blood pressure still elevated at 166/99 after PRN hydralazine administered at 0900. Paged Doctor Martinez awaiting call back.
--- NOTE | 2019-12-17 12:03 | NUR ---
NURSE NOTES: Still no call back from Doctor Michelle. Patients blood pressure still elevated. PRN hydralazine not due again until 1300. Paged primary MD Doctor Nelsy. Waiting for call back.
--- NOTE | 2019-12-17 13:13 | History and Physical ---
History of Present Illness General Date patient seen: Dec 17, 2019 Time patient seen: 08:22 Reason for Hospitalization: Generalized Weakness Present Illness HPI 68 year old man with history of IVDU, currently on methadone 55 mg daily from clinic, AIDS, HCV infection who presented to the ED with Patient presents with lack of appetite and cough for 4 to 5 days in addition to cough, dyspnea and wheeze. No fever or chills No sore throat, chest pain, palpitations, nausea, vomiting, diarrhea, dysuria, abdominal pain, joint pain, rashes, depression, anxiety, visual changes, dizziness, headache. Allergies: Coded Allergies: No Known Allergies (Verified , 04/12/08) Medication History Scheduled Darunavir Ethanolate* (Prezista*), 800 MG ORAL DAILY, (Reported) Diltiazem HCl (Diltiazem 24HR Cd), 180 MG ORAL DAILY, (Reported) Dolutegravir Sodium (Tivicay), 50 MG ORAL DAILY, (Reported) Hydrochlorothiazide* (Hydrochlorothiazide*), 12.5 MG ORAL DAILY, (Reported) Ritonavir (Norvir), 100 MG ORAL TWICE A DAY, (Reported) Discontinued Medications Albuterol Sulfate* (Albuterol Sulfate Mdi*), 2 PUFF INH Q4H PRN for cough/ wheezing Discontinued Reason: Therapy completed [id number]* (Gozwlpye-Srr-4*), 1 PATCH TDERMAL QWEEK, (Reported) Discontinued Reason: Therapy completed Lisinopril (Lisinopril*), 20 MG ORAL DAILY Discontinued Reason: Therapy completed Patient History Healthcare decision maker N Resuscitation status Full Code Advanced Directive on File Review of Systems Constitutional: Denies: fever Eye: Denies: blurred vision ENT: Denies: ear pain Respiratory: Reports: cough, shortness of breath Cardiovascular: Denies: chest pain Gastrointestinal: Denies: abdominal pain Genitourinary: Denies: discharge Musculoskeletal: Denies: back pain Skin: Denies: rash Neurological: Denies: headache Physical Exam General Appearance: no apparent distress, alert HEENT: atraumatic, anicteric Neck: normal alignment, supple Respiratory/Chest: lungs clear, normal breath sounds Cardiovascular/Chest: normal rate, regular rhythm Abdomen: non tender, soft Extremities: non-tender, normal inspection Neurologic: manager system II-XII grossly normal, no motor/sensory deficits Last 24 Hour Vital Signs Date Time Temp Pulse Resp B/P (MAP) Pulse Ox O2 Delivery O2 Flow Rate FiO2 12/17/19 12:57 161/104 12/17/19 12:00 98.0 90 18 161/104 (123) 98 12/17/19 09:30 Nasal Cannula 2.0 28 12/17/19 09:30 84 18 100 Nasal Cannula 3.0 32 82 16 97 12/17/19 09:00 Nasal Cannula 2.0 12/17/19 08:58 170/109 12/17/19 08:57 84 170/109 12/17/19 08:00 97.5 84 20 170/109 (129) 97 12/17/19 04:00 98.3 83 22 148/89 (108) 93 12/17/19 02:03 81 18 99 Nasal Cannula 4.0 36 78 18 98 12/17/19 00:00 98.1 76 21 153/88 (109) 97 12/16/19 23:24 82 18 99 Nasal Cannula 4.0 36 80 18 98 12/16/19 22:20 98.8 88 24 152/88 (109) 94 12/16/19 22:19 Nasal Cannula 2.0 12/16/19 21:18 98.6 89 18 135/80 100 Nasal Cannula 2.0 28 12/16/19 21:08 78 18 100 Nasal Cannula 2.0 28 74 18 99 12/16/19 20:30 98.6 89 22 135/80 94 Nasal Cannula 2.0 12/16/19 17:41 78 20 100 Room Air 21 74 18 98 12/16/19 17:20 74 18 Room Air 21 12/16/19 16:35 98.8 87 20 127/84 94 Room Air 12/16/19 16:35 84 20 Room Air 12/16/19 16:21 98.8 84 20 127/84 (98) 85 Room Air Intake and Output 12/16/19 12/17/19 19:00 07:00 Intake Total 110 ml 1600 ml Output Total 100 ml Balance 110 ml 1500 ml Intake Oral 0 ml IV Total 110 ml 1600 ml Output Urine Total 100 ml # Bowel Movements 2 Laboratory Tests Test 12/16/19 17:10 12/16/19 17:40 12/16/19 18:56 12/16/19 19:35 Sodium Level 134 MMOL/L (136-145) L Potassium Level 5.1 MMOL/L (3.5-5.1) Chloride Level 98 MMOL/L (98-107) Carbon Dioxide Level 24 MMOL/L (21-32) Anion Gap 12 mmol/L (5-15) Blood Urea Nitrogen 24 mg/dL (7-18) H Creatinine 1.4 MG/DL (0.55-1.30) H Estimat Glomerular Filtration Rate > 60 mL/min (>60) Glucose Level 147 MG/DL (74-106) H Lactic Acid Level 2.50 mmol/L (0.4-2.0) H 3.40 mmol/L (0.66-2.22) H Calcium Level 9.2 MG/DL (8.5-10.1) Magnesium Level 1.5 MG/DL (1.8-2.4) L Total Bilirubin 0.9 MG/DL (0.2-1.0) Aspartate Amino Transf (AST/SGOT) 79 U/L (15-37) H Alanine Aminotransferase (ALT/SGPT) 46 U/L (12-78) Alkaline Phosphatase 114 U/L (46-116) Total Creatine Kinase 118 U/L (26-308) Pro-B-Type Natriuretic Peptide 522 pg/mL (0-125) H Total Protein 8.6 G/DL (6.4-8.2) H Albumin 2.4 G/DL (3.4-5.0) L Globulin 6.2 g/dL Albumin/Globulin Ratio 0.4 (1.0-2.7) L Lipase 311 U/L (73-393) Serum Alcohol < 3 mg/dL White Blood Count 3.9 K/UL (4.8-10.8) L Red Blood Count 4.49 M/UL (4.70-6.10) L Hemoglobin 14.2 G/DL (14.2-18.0) Hematocrit 42.7 % (42.0-52.0) Mean Corpuscular Volume 95 FL (80-99) Mean Corpuscular Hemoglobin 31.7 PG (27.0-31.0) H Mean Corpuscular Hemoglobin Concent 33.3 G/DL (32.0-36.0) Red Cell Distribution Width 13.2 % (11.6-14.8) Platelet Count 193 K/UL (150-450) Mean Platelet Volume 6.4 FL (6.5-10.1) L Neutrophils (%) (Auto) 75.3 % (45.0-75.0) H Lymphocytes (%) (Auto) 8.3 % (20.0-45.0) L Monocytes (%) (Auto) 11.8 % (1.0-10.0) H Eosinophils (%) (Auto) 0.3 % (0.0-3.0) Basophils (%) (Auto) 4.2 % (0.0-2.0) H Prothrombin Time 11.2 SEC (9.30-11.50) Prothromb Time International Ratio 1.1 (0.9-1.1) Activated Partial Thromboplast Time 29 SEC (23-33) Urine Color Pale yellow Urine Appearance Slightly cloudy Urine pH 6.5 (4.5-8.0) Urine Specific [place] 1.010 (1.005-1.035) Urine Protein 2+ (NEGATIVE) H Urine Glucose (UA) 2+ (NEGATIVE) H Urine Ketones Negative (NEGATIVE) Urine Blood 2+ (NEGATIVE) H Urine Nitrite Negative (NEGATIVE) Urine Bilirubin Negative (NEGATIVE) Urine Urobilinogen Normal MG/DL (0.0-1.0) Urine Leukocyte Esterase 3+ (NEGATIVE) H Urine RBC 2-4 /HPF (0 - 0) H Urine WBC 10-15 /HPF (0 - 0) H Urine Squamous Epithelial Cells Few /LPF (NONE/OCC) Urine Bacteria Few /HPF (NONE) Urine Yeast Few /HPF (NONE) H Urine Opiates Screen Positive (NEGATIVE) H Urine Barbiturates Screen Negative (NEGATIVE) Phencyclidine (PCP) Screen Negative (NEGATIVE) Urine Amphetamines Screen Negative (NEGATIVE) Urine Benzodiazepines Screen Negative (NEGATIVE) Urine Cocaine Screen Positive (NEGATIVE) H Urine Marijuana (THC) Screen Negative (NEGATIVE) Test 12/17/19 06:00 White Blood Count 2.6 K/UL (4.8-10.8) L Red Blood Count 4.09 M/UL (4.70-6.10) L Hemoglobin 13.1 G/DL (14.2-18.0) L Hematocrit 38.8 % (42.0-52.0) L Mean Corpuscular Volume 95 FL (80-99) Mean Corpuscular Hemoglobin 32.1 PG (27.0-31.0) H Mean Corpuscular Hemoglobin Concent 33.8 G/DL (32.0-36.0) Red Cell Distribution Width 13.2 % (11.6-14.8) Platelet Count 155 K/UL (150-450) Mean Platelet Volume 6.7 FL (6.5-10.1) Neutrophils (%) (Auto) % (45.0-75.0) Lymphocytes (%) (Auto) % (20.0-45.0) Monocytes (%) (Auto) % (1.0-10.0) Eosinophils (%) (Auto) % (0.0-3.0) Basophils (%) (Auto) % (0.0-2.0) Differential Total Cells Counted 100 Neutrophils % (Manual) 82 % (45-75) H Lymphocytes % (Manual) 9 % (20-45) L Monocytes % (Manual) 6 % (1-10) Eosinophils % (Manual) 1 % (0-3) Basophils % (Manual) 2 % (0-2) Band Neutrophils 0 % (0-8) Platelet Estimate Adequate Platelet Morphology Normal Red Blood Cell Morphology Normal Sodium Level 139 MMOL/L (136-145) Potassium Level 4.5 MMOL/L (3.5-5.1) Chloride Level 105 MMOL/L (98-107) Carbon Dioxide Level 26 MMOL/L (21-32) Anion Gap 8 mmol/L (5-15) Blood Urea Nitrogen 20 mg/dL (7-18) H Creatinine 1.3 MG/DL (0.55-1.30) Estimat Glomerular Filtration Rate > 60 mL/min (>60) Glucose Level 133 MG/DL (74-106) H Calcium Level 8.1 MG/DL (8.5-10.1) L Microbiology Date/Time Source Procedure Growth Status 12/16/19 19:35 Urine,Clean Catch Urine Culture - Preliminary NO GROWTH Resulted Height (Feet): 6 Height (Inches): 1.00 Weight (Pounds): 110 Medications Current Medications Medications (Trade) Dose Ordered Sig/Marie Route PRN Reason Start Time Stop Time Status Last Admin Dose Admin Acetaminophen (Tylenol) 650 mg Q6H PRN ORAL Mild Pain/Temp > 100.5 12/16/19 19:15 01/15/20 19:14 Albuterol/ Ipratropium (Albuterol/ Ipratropium) 3 ml Q4H PRN HHN Shortness of Breath 12/16/19 22:45 12/21/19 22:44 Albuterol/ Ipratropium (Albuterol/ Ipratropium) 3 ml Q4HRT HHN 12/16/19 23:00 12/21/19 22:59 12/17/19 09:32 Bisacodyl (Dulcolax) 10 mg DAILYPRN PRN RECTAL Constipation 12/16/19 19:00 01/15/20 18:59 Dextrose (Dextrose 50%) 25 ml Q30M PRN IV Hypoglycemia 12/16/19 19:00 01/15/20 18:59 Dextrose (Dextrose 50%) 50 ml Q30M PRN IV Hypoglycemia 12/16/19 19:00 01/15/20 18:59 Diltiazem HCl (Cardizem CD) 180 mg DAILY ORAL 12/17/19 09:00 01/16/20 08:59 12/17/19 08:57 Hydralazine HCl (Apresoline) 10 mg Q4HR PRN ORAL For High Blood Pressure 12/16/19 22:45 01/15/20 22:44 12/17/19 12:57 Hydrochlorothiazide (Hydrodiuril) 12.5 mg DAILY ORAL 12/17/19 09:00 01/16/20 08:59 12/17/19 08:57 Hydrocortisone (Solu-CORTEF) 40 mg EVERY 8 HOURS IV 12/17/19 06:00 01/16/20 05:59 12/17/19 06:24 Levofloxacin 100 ml @ 100 mls/hr Q24HRS IVPB 12/17/19 18:00 12/23/19 17:59 Magnesium Hydroxide (Mom) 30 ml HSPRN PRN ORAL Constipation 12/16/19 19:00 01/15/20 18:59 Ondansetron HCl (Zofran) 4 mg Q6H PRN IVP Nausea & Vomiting 12/16/19 19:00 01/15/20 18:59 Tramadol HCl (Ultram) 50 mg Q6H PRN ORAL Severe Pain (Pain Scale 7-10) 12/16/19 22:45 3/1/20 22:44 Assessment/Plan Diagnosis [place] I: 68 year old man with history of IVD, AIDS, HCV infection, HTN who presented with #COPD exacerbation #Community acquired pneumonia -admit to inpatient -SoluMedrol -Duonebs -Levaquin -Monitor QTc (Methadone and Levaquin) #HTN -cont diltiazem and HCTZ -hydral prn #AIDS #HCV infection -continue home HAART regimen #IVDU -patient reportedly takes methadone 55 mg daily from clinic, will order I spent 70 minutes on this patient's case, and >50% was dedicated to counseling and/or care coordination. Rohit Vasquez MD Dec 17, 2019 13:13
--- NOTE | 2019-12-17 14:00 | NUR ---
NURSE NOTES: Contacted Doctor Pedro regarding patient's elevated blood pressure. Doctor Pedro stacy with current blood pressure of 160/66, stated to "continue to monitor". No new orders at this time.
--- NOTE | 2019-12-17 14:51 | NUR ---
Social Work This Sw received a consult due to patient was positive for cocaine. This SW met with patient who explains he has been using only for the past three weeks and planning to quit. This Sw provided substance abuse counseling/resources, in which patient declined at this time. Patient plans to discharge to home with family/spouse and requesting a cane upon discharge.
--- NOTE | 2019-12-17 19:30 | NUR ---
HAND-OFF: Report given to Saqib MOREIRA.
--- NOTE | 2019-12-17 19:30 | NUR ---
NURSE NOTES: Received report from Balwinder MOREIRA. Patient is in bed. Awake, A/O x4. Patient is c/o SOB, NC in place, RT called for breathing tx. Patient denies pain. 1/2 side rails up. SCD in place.IV in the Right forearm noted with no redness or swelling. Call light within reach, bed at the lowest position.
[2019-12-18] VITALS: BP 152/88
[2019-12-18] MEDS: Albuterol/Ipratropium 3ml neb HHN SCH ×6 (00:05→18:54)
[2019-12-18 04:00] VITALS: BP 156/82
[2019-12-18] MEDS: Hydrocortisone 100mg Inj IV SCH ×2 (05:49→14:04)
--- NOTE | 2019-12-18 07:15 | NUR ---
NURSE NOTES: Report received from Saqib MOREIRA. Patient is awake and alert x 4. Patient currently sitting in fowlers position in bed eating breakfast. Patient noted to be on 2 liters via nasal canula. Does not appear to be in respiratory distress at this time. patient as no complaints at this time. Patient noted to have 20 caryl IV in right forearm, patent and in tact. Patient was recognized as a high fall risk by previous nurse. RAIL FILLER made aware, sign on door, and yellow socks on patient. Will continue to follow plan of care.
--- NOTE | 2019-12-18 07:24 | NUR ---
HAND-OFF: Report given to Balwinder MOREIRA.
[2019-12-18 08:00] VITALS: BP 161/90
[2019-12-18] MEDS: hydroCHLOROthiazide 25mg cap ORAL SCH (08:17)
[2019-12-18] MEDS: dilTIAZem HCl CD 180mg cap ORAL SCH (08:17)
[2019-12-18 12:00] VITALS: BP 157/91
--- NOTE | 2019-12-18 13:14 | NUR ---
RD ASSESSMENT & RECOMMENDATIONS SEE CARE ACTIVITY FOR COMPLETE ASSESSMENT DAILY ESTIMATED NEEDS: Needs based on Underweight, HIV/ 50kg 30-40 kcals/kg 4613-2982 total kcals 1-1.5 g protein/kg 50-75 g total protein 25-30 mL/kg 5609-7425 total fluid mLs NUTRITION DIAGNOSIS: * Increased kcal/prot needs R/T underweight status and catabolic dx as evidenced by pt @ 60% IBW, low BMI per guidelines, HIV +. CURRENT DIET:REGULAR PO DIET RECOMMENDATIONS: Regular + Snacks in b/w meals + Ensure Enlive BID ADDITIONAL RECOMMENDATIONS: * Standing wt as able for accurate CBW * Ensure Enlive BID w/ meals added (350kcal/20g prot per bottle) * Snacks in b/w meals added * Monitor BGs w/ Solucortef .
[2019-12-18] MEDS: HydrALAZINE 10mg Tab ORAL PRN (14:04)
--- NOTE | 2019-12-18 14:13 | General Progress Note ---
Assessment/Plan Status: doing well Assessment/Plan: 68 year old man with history of IVD, AIDS, HCV infection, HTN who presented with #COPD exacerbation #Community acquired pneumonia -continue inpatient level of care -change steroids to prednisonel -Duonebs -cont Levaquin -Monitor QTc (Methadone and Levaquin) #HTN -cont diltiazem and HCTZ -hydral prn #AIDS #HCV infection -continue home HAART regimen #IVDU -patient reportedly takes methadone 55 mg daily from clinic, will order I spent 35 minutes on this patient's case, and >50% was dedicated to counseling and/or care coordination. Subjective Date patient seen: Dec 18, 2019 Time patient seen: 08:15 ROS Limited/Unobtainable: No Constitutional: Denies: chills, fever Cardiovascular: Denies: chest pain Respiratory: Denies: cough Gastrointestinal/Abdominal: Denies: abdomen distended Genitourinary: Denies: burning Allergies: Coded Allergies: No Known Allergies (Verified , 04/12/08) Subjective Follow up for COPD exacerbation - no new complaints today. Breathing better today. Objective Last 24 Hour Vital Signs Date Time Temp Pulse Resp B/P (MAP) Pulse Ox O2 Delivery O2 Flow Rate FiO2 12/18/19 14:04 161/90 12/18/19 12:00 98.1 89 18 157/91 (113) 97 12/18/19 11:27 100 22 98 Nasal Cannula 2.0 28 91 22 94 12/18/19 09:00 Nasal Cannula 2.0 12/18/19 08:17 109 161/105 12/18/19 08:00 98.6 93 21 161/90 (113) 98 12/18/19 07:22 Venturi Mask 8.0 40 12/18/19 07:22 98 22 97 Venturi Mask 8.0 40 91 22 93 12/18/19 06:01 96 22 100 Venturi Mask 8.0 40 94 24 97 12/18/19 04:00 98.3 93 22 156/82 (106) 98 12/18/19 03:20 87 18 100 Nasal Cannula 3.0 32 86 16 98 12/18/19 00:00 98.0 96 22 152/88 (109) 99 12/17/19 23:57 82 18 100 Nasal Cannula 3.0 32 83 16 97 2/24/20 21:00 Nasal Cannula 2.0 12/17/19 20:00 97.9 91 21 156/92 (113) 99 12/17/19 19:49 Nasal Cannula 2.0 28 12/17/19 19:49 79 18 100 Nasal Cannula 3.0 32 78 16 98 12/17/19 16:51 Nasal Cannula 2.0 12/17/19 16:00 97.9 95 18 157/88 (111) 99 12/17/19 14:10 60 20 99 Nasal Cannula 3.0 32 82 18 97 Intake and Output 12/17/19 12/18/19 19:00 07:00 Intake Total 900 ml Output Total 400 ml Balance 900 ml -400 ml Other 900 ml Output Urine Total 400 ml # Bowel Movements 2 Height (Feet): 6 Height (Inches): 1.00 Weight (Pounds): 110 General Appearance: no apparent distress, alert EENT: PERRL/EOMI, normal ENT inspection Neck: normal alignment, supple Cardiovascular: normal rate, regular rhythm Respiratory/Chest: lungs clear, normal breath sounds, no respiratory distress Abdomen: non tender, soft, no mass Extremities: normal range of motion, non-tender, normal inspection Neurologic: crown buffer II-XII grossly normal, no motor/sensory deficits, alert, oriented x 3 Rohit Vasquez MD Dec 18, 2019 14:13
--- NOTE | 2019-12-18 15:21 | NUR ---
CASE MANAGEMENT:INITIAL REVIEW 12/17/2019 68 YR OLD MALE FROM HOME CC;GENERALIZED WEAKNESS SI;RLL PULMONARY INFILTRATE. ELEVATED LACTIC ACID. SUBSTANCE ABUSE. RENAL INSUFFICIENCY. COPD EXACERBATION 98.8 89 24 158/88 94% 2L NC WBC 3.9 NA+ 134 BUN 24 CR 1.4 LAC ACID 3.40 MG 1.5 AST 79 BNP 522 US+ PROTEIN, GLUCOSE, BLOOD, LEUKO, RBC, WBC, YEAST TOX+ OPIATES, COCAINE CXR+ Right perihilar infiltrates, likely pneumonia. Evidence of bullous COPD IS;DUO NEB HHN SOLU-MEDROL IV IVF NS BOLUS VANCOMYCIN IV LEVAQUIN IV ADMITTED TO MED SURG DCP;FROM HOME
[2019-12-18 16:00] VITALS: BP 160/90
--- NOTE | 2019-12-18 19:20 | NUR ---
HAND-OFF: Report given to Terrie MOREIRA.
--- NOTE | 2019-12-18 19:50 | NUR ---
NURSE NOTES: Received patient in bed, awake, alert, oriented x4, patient is able to verbalize his needs, patient is fall risk, staff are aware and will make frequent rounds, call light is within reach, bed is lowered, locked, alarm is on. Will continue to monitor for comfort and safety. IV site is clean dry and intact.
[2019-12-18 20:00] VITALS: BP 150/78
[2019-12-19] VITALS: BP 150/98
[2019-12-19] MEDS: Albuterol/Ipratropium 3ml neb HHN SCH ×6 (00:20→20:36)
[2019-12-19 04:00] VITALS: BP 163/87
[2019-12-19] MEDS: HydrALAZINE 10mg Tab ORAL PRN ×2 (04:14→09:04)
--- NOTE | 2019-12-19 07:14 | NUR ---
HAND-OFF: Report given to Balwinder MOREIRA.
--- NOTE | 2019-12-19 07:15 | NUR ---
NURSE NOTES: Report received from Terrie MOREIRA. Patient is awake and alert x 4. Patient currently sitting in fowlers position in bed eating breakfast. Patient currently breathing on room air. Does not appear to be in respiratory distress at this time. patient as no complaints at this time. Patient noted to have 20 caryl IV in right forearm, patent and in tact. Patient was recognized as a high fall risk by previous nurse. PSYCHIATRIC NURSE made aware, sign on door, and yellow socks on patient. Will continue to follow plan of care.
[2019-12-19 08:00] VITALS: BP 171/103
[2019-12-19] MEDS: dilTIAZem HCl CD 180mg cap ORAL SCH (09:04)
[2019-12-19] MEDS: hydroCHLOROthiazide 25mg cap ORAL SCH (09:05)
--- NOTE | 2019-12-19 10:20 | NUR ---
NURSE NOTES: Contacted Doctor Pedro regarding blood pressure of 179/115, and heart rate of 110 BPM. Waiting call back. Charge nurse Radha johns.
--- NOTE | 2019-12-19 10:40 | General Progress Note ---
Assessment/Plan Status: doing well Assessment/Plan: 68 year old man with history of IVD, AIDS, HCV infection, HTN who presented with #COPD exacerbation #Community acquired pneumonia -continue inpatient level of care -continue prednisone -Duonebs -cont Levaquin -Monitor QTc (Methadone and Levaquin) #HTN, uncontrolled -cont diltiazem -one dose of clonidine ordered -may start lisinopril today pending labs -hydral prn #AIDS #HCV infection -continue home HAART regimen #IVDU -continue methadone I spent 35 minutes on this patient's case, and >50% was dedicated to counseling and/or care coordination. Subjective Date patient seen: Dec 19, 2019 Time patient seen: 08:31 Constitutional: Denies: chills, fever Cardiovascular: Denies: chest pain Respiratory: Reports: cough; Denies: shortness of breath Gastrointestinal/Abdominal: Denies: abdomen distended, abdominal pain Neurologic/Psychiatric: Denies: headache Allergies: Coded Allergies: No Known Allergies (Verified , 04/12/08) Subjective Follow up for COPD exacerbation - no new complaints today. Breathing is improved Blood pressure running high Objective Last 24 Hour Vital Signs Date Time Temp Pulse Resp B/P (MAP) Pulse Ox O2 Delivery O2 Flow Rate FiO2 12/19/19 09:04 100 171/103 12/19/19 09:04 171/103 12/19/19 09:00 Nasal Cannula 2.0 12/19/19 08:17 Nasal Cannula 2.0 28 12/19/19 08:17 98 18 98 Nasal Cannula 2.0 28 87 18 98 12/19/19 08:00 98.4 103 22 171/103 (125) 96 103 12/19/19 04:14 163/98 12/19/19 04:00 98.0 102 22 163/87 (112) 98 102 12/19/19 03:23 88 18 98 Nasal Cannula 2.0 28 91 18 94 12/19/19 00:20 63 18 100 Nasal Cannula 2.0 28 60 18 99 12/19/19 00:00 98.1 90 21 150/98 (115) 95 12/18/19 21:21 Nasal Cannula 2.0 12/18/19 20:00 98.6 89 23 150/78 (102) 97 89 12/18/19 18:54 93 18 100 Nasal Cannula 2.0 28 94 18 99 12/18/19 18:54 Nasal Cannula 2.0 28 12/18/19 16:00 98.6 90 17 160/90 (113) 96 12/18/19 15:21 92 20 100 Nasal Cannula 2.0 28 85 20 94 12/18/19 14:04 161/90 12/18/19 12:00 98.1 89 18 157/91 (113) 97 12/18/19 11:27 100 22 98 Nasal Cannula 2.0 28 91 22 94 Intake and Output 12/18/19 12/19/19 19:00 07:00 Intake Total 800 ml Output Total 750 ml Balance 800 ml -750 ml Other 800 ml Output Urine Total 750 ml # Voids 3 Height (Feet): 6 Height (Inches): 1.00 Weight (Pounds): 110 General Appearance: no apparent distress, alert Neck: supple Cardiovascular: normal rate, regular rhythm Respiratory/Chest: lungs clear, normal breath sounds, no respiratory distress Abdomen: non tender, soft Neurologic: no motor/sensory deficits, alert, oriented x 3 Rohit Vasquez MD Dec 19, 2019 10:40
--- NOTE | 2019-12-19 10:44 | NUR ---
NURSE NOTES: Doctor Pedro aware of elevated blood pressure and heart rate. Ordered one time dose of clonidine 0.1 mg. Clonidine 0.1 mg administered by Balwinder MOREIRA.
[2019-12-19 11:58] LABS: BASOPHILS % (AUTO) 4.6 % (0.0-2.0); EOSINOPHILS % (AUTO) 0.2 % (0.0-3.0); HEMATOCRIT 44.5 % (42.0-52.0); HEMOGLOBIN 14.3 G/DL (14.2-18.0); LYMPHOCYTES % (AUTO) 9.2 % (20.0-45.0); MEAN CORPUSCULAR VOLUME 97 FL (80-99); MONOCYTES % (AUTO) 9.9 % (1.0-10.0); NEUTROPHILS % (AUTO) 76.2 % (45.0-75.0); PLATELET COUNT 177 K/UL (150-450); RED CELL DISTRIBUTION WIDTH 14.7 % (11.6-14.8); WHITE BLOOD COUNT 3.9 K/UL (4.8-10.8)
[2019-12-19 12:00] VITALS: BP 130/96
[2019-12-19 12:06] LABS: ANION GAP 9 mmol/L (5-15); BLOOD UREA NITROGEN 26 mg/dL (7-18); CALCIUM 8.9 MG/DL (8.5-10.1); CARBON DIOXIDE 30 MMOL/L (21-32); CHLORIDE 99 MMOL/L (98-107); CREATININE 1.2 MG/DL (0.55-1.30); POTASSIUM 3.5 MMOL/L (3.5-5.1); SODIUM 138 MMOL/L (136-145)
[2019-12-19 16:00] VITALS: BP 153/89
--- NOTE | 2019-12-19 19:13 | NUR ---
HAND-OFF: Report given to Terrie MOREIRA. Patient in stable condition.
--- NOTE | 2019-12-19 19:46 | NUR ---
NURSE NOTES: Received patient in bed, awake, alert, oriented x4, IV site is clean dry and intact, able to make his needs known, call light is within reach, bed is lowered, locked and alarm is on, will continue to monitor for comfort and safety.
[2019-12-19 20:00] VITALS: BP 149/97
[2019-12-19] MEDS ORDERED: Lisinopril 20mg tab ORAL SCH (21:00)
[2019-12-20] VITALS: BP 148/89
[2019-12-20] MEDS: Albuterol/Ipratropium 3ml neb HHN SCH ×5 (00:08→15:01)
[2019-12-20 04:00] VITALS: BP 150/97
--- NOTE | 2019-12-20 07:15 | NUR ---
HAND-OFF: Report given to Emanuel MOREIRA.
--- NOTE | 2019-12-20 07:37 | NUR ---
NURSE NOTES: Received report from LILLIE Falcon. Patient sitting in high Srinivasan's position, side rails up x 2, vital sign machine at bedside, bedside commode at bedside, urinal at bedside. Patient is watching television. On 2 liters nasal cannula, in no apparent distress.
[2019-12-20 08:00] VITALS: BP 167/98
--- NOTE | 2019-12-20 08:52 | NUR ---
P.T Note: P.T evaluation completed and tx initiated. Please refer to P.T evaluation for current functional status. Pt is alert, O x 4 , pleasant and cooperative. Pt had no c/o pain but weakness, feeling fatigued and SOB with minimal exertion. . CGA X 1 for bed mobilities, transfer activities and gait/ambulation activities. Pt was only able to ambulate and tolerate not more than 15 ft due to fatigue and SOB. Pt was on 2 l/min, O2 sat at 85-86%, HR: 90 bpm-98 bpm. RN and RT was notified. Will continue to follow up . Pt will be seen 5x/wk , QD for strength and conditioning training to increase activity tolerance and mobility independence for return to PLOF.
[2019-12-20] MEDS: hydroCHLOROthiazide 25mg cap ORAL SCH (09:37)
[2019-12-20] MEDS: dilTIAZem HCl CD 180mg cap ORAL SCH (09:39)
[2019-12-20] MEDS ORDERED: PREDNISONE10 MG ORAL (11:10)
[2019-12-20] MEDS ORDERED: PRINIVIL20 MG ORAL (11:10)
--- NOTE | 2019-12-20 11:22 | Discharge Summary ---
Discharge Summary Hospital Course Date of Admission Dec 16, 2019 at 17:23 Date of Discharge 12/20/19 Admitting Diagnosis copd exacerbation hypertensive urgency HPI Dilip Manzano is a 68 year old male who was admitted on Dec 16, 2019 at 17:23 for Chronic Obstructive Pulmonary Disease Exacerbation Consultations None Procedures None Hospital Course 68 year old man with history of IVD, AIDS, HCV infection, HTN who was admitted with dyspnea and cough - CXR showing Right perihilar infiltrates. He was treated with Levaquin in addition to Solu-Medrol and inhaled bronchodilators for COPD exacerbation and CAP. Also treated for hypertensive urgency with prn hydralazine. Started on lisinopril with improvement in BP. He will be discharged home on prednisone taper and lisinopril for BP control. #COPD exacerbation #Community acquired pneumonia #CHRISTOFER, POA, resolved #Hypertensive urgency, uncontrolled #AIDS #HCV infection #IVDU I spent 35 minutes on this patient's discharge, and >50% was dedicated to counseling and/or care coordination. Discharge Discharge Vital Signs Last Vital Signs Date Time Temp Pulse Resp B/P (MAP) Pulse Ox O2 Delivery O2 Flow Rate FiO2 12/20/19 10:53 112 20 99 Venturi Mask 14.0 55 108 22 99 12/20/19 09:39 167/98 12/20/19 08:00 98.0 Discharge Disposition Patient was discharged to home with home health Discharge Diagnoses: (1) HIV (human immunodeficiency virus infection) (2) COPD exacerbation (3) Right lower lobe pulmonary infiltrate Rohit Vasquez MD Dec 20, 2019 11:22
[2019-12-20 12:00] VITALS: BP 154/112
--- NOTE | 2019-12-20 13:07 | NUR ---
*-*DISCHARGE PLANNING*-* PATIENT HAS BEEN REFERRED TO: [facility] P: [phone] F: [phone] *-*CLINICALS FAXED*-*
== END 2019-12-20 15:20 | disposition home health service (06) | DRG 190 ==
LOC: EMR 17:20 → 4E 17:23 → EDBEDREQ 20:41
DX: J44.1 Chronic obstructive pulmonary disease with (acute) exacerbation (principal); J18.9 Pneumonia, unspecified organism; B20 Human immunodeficiency virus [HIV] disease; N17.9 Acute kidney failure, unspecified; B17.10 Acute hepatitis C without hepatic coma; F17.200 Nicotine dependence, unspecified, uncomplicated; F11.10 Opioid abuse, uncomplicated; I16.0 Hypertensive urgency
CPT/HCPCS: 36415; 71045; 80048; 80053; 80307; 81003; 82550; 83605; 83690; 83735; 83880; 85007; 85025; 85610; 85730; 86850; 86900; 86901; 87040; 87086; 93005; 94640; 96365; 96368; 96375; 99285; G0480; J7030; J7620